=== PATIENT | male | born 1985 | race Hispanic/Latino ===

== ENCOUNTER 2021-06-12 06:38 | Inpatient (IN) | payer SELFPAY ==
[2021-06-12] VITALS (18 sets, daily range): BP systolic 140–208; BP diastolic 94–157; PULSE 80–108; RESP 15–27; TEMP 36.1–37; O2SAT 93–100; BMI 39.2
--- NOTE | ~2021-06-12 | CT_ITS ---
EXAMINATION: CT abdomen pelvis w con DATE: 06/12/2021 08:14 INDICATION: Testicular swelling for 10 days. TECHNIQUE: Computed tomography (CT) of the abdomen and pelvis was performed with 100 mL Omnipaque 350 intravenous contrast. Automated exposure control and iterative reconstruction technique were employe d. The dose-length product was 1525.79 mGy-cm. COMPARISON: None. FINDINGS: The visualized portions of the lung bases demonstrate septal thickening and [place], consistent with pulmonary edema. There are small pleural effusions. Cardiomegaly is noted. Th ere is a small pericardial effusion. The liver and spleen are normal. The gallbladder is normal in si ze. Gallbladder wall thickening is likely secondary to interstitial edema. The pancreas, adrenal glan ds, and kidneys are normal. There is old fat necrosis adjacent to the sigmoid colon. There are no dil ated loops of bowel. The appendix is normal. There are no pathologically enlarged lymph nodes. There is a small volume of ascites. There is extensive edema in the scrotum. There is subcutaneous edema in the body wall and thighs. There is mild thoracal spondylosis and moderate lumbar spondylosis. IMPRESSION: 1. Anasarca including moderate pulmonary edema, small pleural effusions, small pericardial effusion, and a small volume of ascites. 2. Cardiomegaly. Reviewed, dictated and finalized at location A.
--- NOTE | ~2021-06-12 | US_ITS ---
EXAMINATION: US biopsy renal DATE: 06/15/2021 15:31 INDICATION: Renal failure. Hematuria. TECHNIQUE: The procedure including the risks, benefits, and alternatives was discussed with the patie nt through an head buyer tobacco. Risks discussed included bleeding and infection. The patient understood th e risks and agreed to proceed. The skin overlying the left kidney was prepped and draped in usual cynthia rile fashion. Anesthetic was administered with 1% lidocaine subcutaneously. An 18 gauge core biopsy needle was then used to obtain 3 core biopsy specimens under continuous sonographic guidance. The en try site was cleaned and dressed. There were no immediate complications. FINDINGS: Ultrasound images demonstrate the needle in the kidney. IMPRESSION: 1. Ultrasound-guided random left kidney core needle biopsy. Reviewed, dictated and finalized at location A.
--- NOTE | ~2021-06-12 | US_ITS ---
EXAMINATION: US scrotum doppler DATE: 06/12/2021 07:41 INDICATION: Scrotal and penile edema. TECHNIQUE: Grayscale and Doppler ultrasound images of the testes were obtained. COMPARISON: None. FINDINGS: The right testis measures 3.9 x 2.1 x 2.7 cm. The left testis measures 3.8 x 2.6 x 2.5 cm. There is normal vascular flow to both testes. The right epididymis demonstrates a 5 mm cyst. Vascular ity is normal. The left epididymis demonstrates a 9 mm cyst. Vascularity is normal. There is no hydro brynn. There are bilateral varicoceles. There is extensive scrotal skin thickening. IMPRESSION: 1. Bilateral varicoceles. 2. Extensive scrotal skin thickening. Reviewed, dictated and finalized at location A.
--- NOTE | ~2021-06-12 | US_ITS ---
EXAMINATION: US retroperitoneal comp DATE: 06/12/2021 12:58 INDICATION: Renal failure. TECHNIQUE: Multiple ultrasound grayscale images of the kidneys were obtained. COMPARISON: CT abdomen and pelvis 06/12/2021 FINDINGS: The right kidney measures 12.4 x 4.9 x 5.0 cm. The left kidney measures 11.8 x 5.5 x 5.4 cm. The kidn eys demonstrate normal parenchymal echogenicity. There is no hydronephrosis. The bladder is normal. T here is a small volume of ascites. IMPRESSION: 1. Normal kidneys. No hydronephrosis. 2. Small volume of ascites. Reviewed, dictated and finalized at location A.
--- NOTE | ~2021-06-12 | XR_ITS ---
EXAMINATION: XR chest 1V portable DATE: 06/14/2021 07:04 INDICATION: Hypoxia. TECHNIQUE: A single frontal view of the chest was obtained. COMPARISON: CT abdomen and pelvis 06/12/2021 FINDINGS: There is mild elevation of right hemidiaphragm. The lung volumes are small. There is an int erstitial pattern in the lungs, consistent mild pulmonary edema. No visible pleural effusion. No pneu mothorax. Cardiomegaly is noted. IMPRESSION: 1. Mild pulmonary edema. 2. Cardiomegaly. Reviewed, dictated and finalized at location A.
--- NOTE | ~2021-06-12 | NM_ITS ---
EXAMINATION: NM júnior stress w perfusion DATE: 06/14/2021 11:41 INDICATION: New onset congestive heart failure. TECHNIQUE: Rest images were obtained following intravenous administration of 10.2 mCi Tc99m tetrofosm in (Myoview). The patient was infused intravenously with Lexiscan (regadenoson). Then, 31.5 mCi Tc99m tetrofosmin (Myoview) was administered intravenously, and stress images were obtained. Data was sangeetha nstructed into short axis and horizontal and vertical long axis SPECT images. Gated SPECT images were also obtained. COMPARISON: CT abdomen and pelvis 06/12/2021 FINDINGS: There is no definite reversible or fixed perfusion abnormality to suggest ischemia or infar ction. There is no segmental wall motion abnormality. Left ventricular ejection fraction measures 3 1%. IMPRESSION: 1. No definite ischemia or infarct. 2. Global hypokinesis with left ventricular ejection fraction measuring 31%. Reviewed, dictated and finalized at location A.
--- NOTE | 2021-06-12 07:22 | PC.NURSE ---
Pt to u/s via stretcher at this time.
[2021-06-12 07:26] LABS: Basophils Percent Auto 0.4 % (0.2-1.2); Eosinophils Absolute Auto 0.1 K/mm3 (0-0.3); Eosinophils Percent Auto 0.9 % (0-4.4); Hematocrit 51.7 % (42.0-52.0); Immature Granulocyte Absolute 0.03 K/mm3 (0.00-0.031); Immature Granulocyte Percent A 0.3 % (0-0.5); Lymphocytes Absolute Auto 1.28 K/mm3 (0.9-3.2); Lymphocytes Percent Auto 14.3 % (18.3-44.2); Mean Corpuscular HGB Conc 32.9 g/dl (32-36); Mean Corpuscular Hemoglobin 29.8 pg (26-34); Mean Corpuscular Volume 90.7 fl (80-100); Mean Platelet Volume 11.2 fl (7.4-10.4); Monocytes Absolute Auto 0.5 K/mm3 (0.1-0.6); Neutrophils Percent Auto 78.1 % (45.5-73.1); Platelet Count Result 218 k/mm3 (150-375); Red Cell Distribution Width 13.8 % (11.5-14.5)
--- NOTE | 2021-06-12 07:34 | ED.GENADULT ---
HPI - General Adult General Chief complaint: Urogenital-Male Stated complaint: both testicle swelling Time Seen by Provider: 06/12/21 07:04 Source: patient and family Mode of arrival: ambulatory Limitations: language barrier History of Present Illness HPI narrative: 36-year-old male presents emergency room secondary to some swelling to his scrotum has been going on for approximately a week. He is here with his cousin who is functioning as a cardiac catheterization technician. Began having swelling to his scrotum approximately 1 week ago skin progressively worse. He denies urethral discharge. Denies any chills or fevers. He is sexually active last time as sexual intercourse was about 1/2 to 2 weeks ago. Is never had anything like this before is also noted to get some swelling to his legs as well as some to his abdomen. Denies any chills or fevers. No cough or congestion. No nausea vomiting diarrhea constipation. He does not elicit any chronic medical issues. Related Data Home Medications Medication Instructions Recorded Confirmed No Home Medications 06/12/21 06/12/21 Allergies Allergy/AdvReac Type Severity Reaction Status Date / Time No Known Allergies Allergy Verified 06/12/21 07:01 Review of Systems Review of Systems: CONSTITUTIONAL: Denies fever, chills, or sweats. EYES: Denies visual changes, redness, or discharge. ENT: Denies rhinorrhea, congestion, sore throat, or otalgia. CARDIOVASCULAR: Denies chest pain, palpitations, or edema. RESPIRATORY: Denies cough or dyspnea. GASTROINTESTINAL: Denies abdominal pain, nausea, vomiting, or diarrhea. GENITOURINARY: Denies dysuria or hematuria. Swelling to the scrotum and penis SKIN: Denies rash or itching. MUSCULOSKELETAL: Denies back pain, joint pain, or myalgia. NEUROLOGIC: Denies headache, numbness, or weakness. PSYCHIATRIC: Denies anxiety or depression. Exam Narrative: APPEARANCE: Well appearing, no pain or distress, well-nourished. Head normocephalic and atraumatic. EYES: PERRLA/EOMI, conjunctivae very clear. NOSE: Normal with no drainage EARS:TMS clear Deven Holloway, with good light reflex. THROAT: Pharynx clear, no exudate. NECK: Supple. No adenopathy, no masses. RESPIRATORY: Airway patent, respirations nonlabored. Clear to auscultation bilaterally, no rales, rhonchi, wheezing. CARDIOVASCULAR: Regular rate and rhythm without murmurs, rubs, or gallops. ABDOMINAL: Soft, nontender, nondistended, no hepatosplenomegaly. Edema noted to the abdominal wall Musculoskeletal: Moves all extremities. Strength/ROM intact, No calf tenderness. 2+ edema to both lower extremities NEURO: Alert. Cranial nerves II through XII intact. Normal gait. Good coordination. Nonfocal examination. SKIN:: Warm, dry. Normal Color PSYCHIATRIC: Normal affect/mood, normal interaction Genital: Marked edema noted to the entire scrotum with no tenderness. Also has edema all the way to the penis. No discharge noted. It is not exquisitely tender. Course Consultations Consultation #1: Discussed with Dr. García Samson the sales counselor made him aware of the consultation and he will be seeing the patient. Date: 06/12/21 Time: 09:45 Consultation #2: The cyber security analyst Dr. Mendoza and he is aware of the patient's presentation will be seeing the patient on presentation to intensive care unit. Date: 06/12/21 Time: 10:02 Vital Signs Vital signs: Vital Signs Temperature 98.6 F 06/12/21 06:41 Pulse Rate 108 H 06/12/21 06:41 Respiratory Rate 18 06/12/21 06:41 Blood Pressure 208/152 H 06/12/21 06:41 Pulse Oximetry 100 06/12/21 06:41 Temperature 98.6 F 06/12/21 06:41 Pulse Rate 88 06/12/21 09:54 Respiratory Rate 21 H 06/12/21 09:54 Blood Pressure 172/146 H 06/12/21 09:54 Pulse Oximetry 97 06/12/21 09:54 Medical Decision Making MDM Narrative Medical decision making narrative: On presentation the patient is noted to have diffuse edema consistent with anasarca. Also his blood pressure is markedly elevated w
[2021-06-12 07:43] LABS: Alanine Aminotransferase 59 U/L (4-50); Albumin Level 3.1 g/dL (3.5-5.1); Alkaline Phosphatase 89 U/L (38-126); Anion Gap 1 mmol/L (8-16); Aspartate Amino Transferase 51 U/L (17-59); Blood Urea Nitrogen 33 mg/dL (9-20); Calcium 7.9 mg/dL (8.4-10.2); Carbon Dioxide 31 mmol/L (22-30); Chloride 104 mmol/L (98-107); Estimated CRCL calculation 50 ml/min; Estimated Glomerular Filt Rate 38; Glucose 116 mg/dL (65-110); Potassium 4.4 mmol/L (3.4-5.0); Sodium 136 mmol/L (137-145)
[2021-06-12 08:11] LABS: Add Urine Microscopic? YES; Appearance Urine Cloudy (Clear); Bacteria Urine Trace /hpf; Bilirubin Urine Negative (Negative); Blood Urine 2+ (Negative); Color Urine Yellow (Yellow); Glucose Urine UA 1+ mg/dL (Negative); Ketones Urine Trace mg/dL (Negative); Leukocyte Esterase Ur Negative LEU/UL (Negative); Mucus Urine Rare /lpf; Nitrate Urine Negative (Negative); Protein Urine 3+ mg/dL (Negative); Specific Grav Ur 1.022 (1.001-1.035); Urobilinogen Urine Negative mg/dL (<2.0)
[2021-06-12] MEDS: LABETALOL HCL INJ 100 MG/20 ML VIAL 10 MG IV PUSH (09:18)
[2021-06-12] MEDS: niCARdipine 20 MG/200 ML 20 MG/200 ML BAG 50 MG IV CONT (09:53)
--- NOTE | 2021-06-12 10:06 | ECG_ITS ---
Measurements Intervals [place] Rate: 87 P: 30 WV: 167 QRS: 62 QRSD: 94 T: 19 QT: 382 QTc: 461 Interpretive Statements SINUS RHYTHM NONSPECIFIC T-WAVE ABNORMALITY Electronically Signed On 06-12-2021 11:42:20 CDT by Jorge La M.D.
--- NOTE | 2021-06-12 10:20 | WPDCNINT ---
Assessment and Plan Assessment and plan (1) Hypertensive emergency: Code(s): I16.1 - Hypertensive emergency Status: Acute Assessment and Plan: Patient presented with elevated blood pressure was started on nicardipine drip I will start him on p.o. metoprolol, IV Lasix and IV p.r.n. labetalol and hydralazine medication Wean off nicardipine infusion Will try to keep systolic between 150-160 for next 24 hours Echo is ordered EKG reviewed Patient is asymptomatic at this time (2) Anasarca: Code(s): R60.1 - Generalized edema Status: Acute Assessment and Plan: Patient may have nephrotic disease. Nephrology has seen the patient and workup has been ordered including 24 hour protein Check renal ultrasound Also look for other causes check echocardiogram, TSH Start Lasix once urine samples were collected for volume overload (3) Acute kidney injury: Code(s): N17.9 - Acute kidney failure, unspecified Status: Acute Assessment and Plan: See above Additional Plan DVT prophylaxis -Lovenox subQ Nutrition -renal diet Code Status -patient requests to be full code and request that his cousin moy to be his POA. He is unmarried and his parents are in [place]. Has a sibling in [place] but he does not want him to be notified or involved in his care Intellectual Property Legal Assistant Consult Note Consult date: 06/12/21 HPI: Danny Garcia is a 36 year old male with no significant past medical history presented with swelling of his scrotum from last 2 days. Patient states that swelling started 1-2 weeks but was not seen until last 2 days when it had gotten worse. Hence he presented to ED. he also states that his swelling in the legs also started couple weeks and has been getting worse but was not the main reason for him to come to the hospital. He denies any other symptoms He denies any chest pain shortness of breath abdominal pain nausea vomiting diarrhea. No hematemesis hemoptysis hematuria or blood in his stool. He has not noticed any change in the amount of urine he produces. He denies any difficulty with urination.. He states he wakes up only once at night to pee. No nocturia, polyuria frequency, dysuria or foul-smelling urine. He denies taking any upuh-[id number]-[id number] nonsteroidal drugs for pain. Denies any headache, blurry vision weakness of varices in any particular extremity. He denies any shortness of breath. All other systems were reviewed and were negative He denies any past medical history, past surgical history or family history. He denies smoking alcohol use or any other drug use. 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 He has see if 2 doses of vaccine against COVID-19 Review of Systems Review of Systems: All systems reviewed & are unremarkable except as noted in HPI and below (HPI) [facility] Social History Social History Smoking status: Never smoker Alcohol intake: former Substance use type: does not use Spiritual care concerns: No Meds Home Medications and Allergies Home Medications Medication Instructions Recorded Confirmed Type No Home Medications 06/12/21 06/12/21 History Allergies Allergy/AdvReac Type Severity Reaction Status Date / Time No Known Allergies Allergy Verified 06/12/21 11:58 Vital Signs Vital Signs - 24 hr 06/12/21 06:41 06/12/21 09:09 06/12/21 09:53 Temperature 37.0 C Pulse Rate 108 H 101 H 86 Respiratory Rate 18 18 Blood Pressure 208/152 H 198/157 H 167/139 H Pulse Oximetry 100 99 06/12/21 09:54 Temperature Pulse Rate 88 Respiratory Rate 21 H Blood Pressure 172/146 H Pulse Oximetry 97 Exam Narrative: General: Pt is alert awake and in NAD Lungs/Chest: Trachea central Clear BS B/L, bibasilar crackles present Cardiac: RRR. Normal S1 S2. No murmurs Circulation: Pedal pulses are intact and symmetrical. Abdomen: Normal bowel sounds.. Soft. NT. ND. Ext
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
--- NOTE | 2021-06-12 10:41 | ECHO_ITS ---
Patient Info Name: Danny Garcia Age: 36 years : 1985 Gender: Male Ht: 65 in Wt: 209 lbs BSA: 2.12 m2 HR: 88 bpm BP: 140 / 123 mmHg Heart Rhythm: Sinus Rhythm Technical Quality: Fair Exam Date: 06/12/2021 11:51 AM Exam Location: [facility] Patient Status: Inpatient Admit Date: 06/12/2021 Staff Ordering Physician: García Samson MD Acetaldehyde Converter Operator: Nova Kline RDCS Attending Provider: Laz Horan M.A., MD Referring Physician: Chapin SUTTON; Exam Type: CA echo doppler color flow Study Info Indications - Anasarca and pulmonaey edema and effusion Complete two-dimensional, color flow and Doppler transthoracic echocardiogram is performed. Summary 1. Complete two-dimensional, color flow and Doppler transthoracic echocardiogram is performed. 2. Moderate left ventricular enlargement. Mild eccentric left ventricular hypertrophy. Severe global left ventricular dysfunction, EF 30-35%. Grade 2 diastolic dysfunction. 3. Global longitudinal strain was severely diminished at -10%. There was apical sparing, which can be seen with cardiac amyloidosis. 4. Right ventricular size is normal but systolic function is reduced. 5. Left atrial chamber dimension is mildly enlarged. 6. Right atrial chamber dimension is mildly enlarged. 7. There is mild to moderate tricuspid valve regurgitation. 8. Moderate pulmonary hypertension, estimated pulmonary arterial systolic pressure is 55 mmHg. 9. Dilated inferior vena cava. 10. Normal sinus rhythm. Left Ventricle Left ventricular chamber dimension is moderately enlarged. Left ventricular systolic function is severely reduced, estimated at 30-35%. There is mildly increased left ventricular wall thickness. Left ventricular septal wall motion is normal. The left ventricular diastolic function is grade II diastolic dysfunction. Global longitudinal strain is severely elevated at -10 %. Right Ventricle Right ventricular chamber dimension is normal. Right ventricular size is normal but systolic function is reduced. Linear artifact in right ventricle suggestive of catheter(s), pacemaker lead(s), or ICD lead(s). Left Atria Left atrial chamber dimension is mildly enlarged. Right Atria Right atrial chamber dimension is mildly enlarged. Aortic Valve The aortic valve is trileaflet. There is no aortic valve sclerosis. There is no aortic valve stenosis. There is no aortic valve regurgitation. Pulmonic Valve The pulmonic valve is normal. There is no pulmonic valve stenosis. There is trace pulmonic regurgitation. Mitral Valve The mitral valve has normal leaflets. There is no mitral valve stenosis. There is trace mitral valve regurgitation. Tricuspid Valve The tricuspid valve leaflets are normal. There is no significant tricuspid valve stenosis. There is mild to moderate tricuspid valve regurgitation. Moderate pulmonary hypertension, estimated pulmonary arterial systolic pressure is 55 mmHg. Pericardium/Pleural The pericardium appears normal. There is trivial pericardial effusion. Inferior Vena Cava Dilated inferior vena cava. Aorta The aortic root size at the sinus of Valsalva is normal. The prox ascending aorta size is normal. Left Ventricular Outflow Tract Name Value Normal LVOT 2D ---
--- NOTE | 2021-06-12 10:58 | ADMGEN ---
This patient, Danny Garcia, was admitted to Intensive Care Unit-6. Patient/family oriented to hospital policies and general routines including ID bracelet, bed and alarms, visiting hours, pain management, procedures, bathroom and other care routines, personal items, smoking policy, room service/diet, and visiting hours. Information on how to activate the Rapid Response Team has been discussed. Patient/Family are encouraged to report perceived risks to care and to ask questions if they do not understand what they are told or what they should do.
[2021-06-12 11:43] LABS: Creatinine Urine 141.4 mg/dL
[2021-06-12 11:48] LABS: Sodium Urine Random 51 meq/L
[2021-06-12 11:51] LABS: Creatine Kinase 597 U/L (55-170)
[2021-06-12 11:59] LABS: Total Protein Urine Random > 600 mg/dL
[2021-06-12 12:04] LABS: Parathyroid Intact 216.4 pg/mL (7.5-53.5)
[2021-06-12 12:10] LABS: Complement C3 136 mg/dL (88-165)
[2021-06-12 12:20] LABS: Erythrocyte Sedimentation Rate 8 mm/hr (0-20)
[2021-06-12 12:33] LABS: Hemoglobin A1C 5.5 % (<5.7)
[2021-06-12 12:40] LABS: NT Pro B Type Natriuretic Pept 9410 pg/mL (5-100)
[2021-06-12 12:54] LABS: Hepatitis B Surface Antigen Negative (Negative)
[2021-06-12] MEDS: FUROSEMIDE INJ 100 MG/10 ML VIAL 80 MG IV PUSH ×2 (13:00→20:10)
[2021-06-12] MEDS: METOPROLOL TARTRATE 25 MG TABLET PO ×2 (13:00→20:10)
[2021-06-12] MEDS: ENOXAPARIN 40 MG/0.4 ML SYRINGE SUB-Q (13:00)
[2021-06-12 13:12] LABS: Hepatitis B Surface Anti Res Negative; Hepatitis C Virus Antibody Negative (Negative)
--- NOTE | 2021-06-12 14:30 | PM.IMHP ---
H&P: HPI History of Present Illness Date/Time: 06/12/21 14:30 Chief Complaint: 36 year old male with past medical history of obesity patient start having scrotal swelling started 2 weeks ago worsening gradually no aggravating or relieving factor associated with lower extremity edema worsening gradually patient also complained of shortness of breath worsening with activity denies chest pain fever or chills at the ER patient was found to have hypertensive urgency diastolic blood pressure was in 150s also acute renal failure generalized anasarca admitted to the hospital for further evaluation and treatment Patient was started on nicardipine drip IV Lasix nephrology critical care was consulted Review of Systems Review of Systems: All systems reviewed & are unremarkable except as noted in HPI and below PMFSH Social History Social History Smoking status: Never smoker Alcohol intake: former Substance use type: does not use Spiritual care concerns: No Meds Home Medications and Allergies Home Medications Medication Instructions Recorded Confirmed Type No Home Medications 06/12/21 06/12/21 History Allergies Allergy/AdvReac Type Severity Reaction Status Date / Time No Known Allergies Allergy Verified 06/12/21 11:58 Vital Signs Vital Signs - 24 hr 06/12/21 06:41 06/12/21 09:09 06/12/21 09:53 Temperature 98.6 F Pulse Rate 108 H 101 H 86 Respiratory Rate 18 18 Blood Pressure 208/152 H 198/157 H 167/139 H Pulse Oximetry 100 99 06/12/21 09:54 06/12/21 10:20 06/12/21 10:45 Temperature Pulse Rate 88 88 91 Respiratory Rate 21 H 16 15 Blood Pressure 172/146 H 140/123 H 146/123 H Pulse Oximetry 97 96 99 06/12/21 12:00 06/12/21 12:58 06/12/21 13:00 Temperature Pulse Rate 88 89 Respiratory Rate 27 H Blood Pressure 159/107 H 148/94 H Pulse Oximetry 93 06/12/21 14:00 06/12/21 14:29 Temperature Pulse Rate 80 Respiratory Rate 26 H Blood Pressure 154/119 H 164/111 H Pulse Oximetry 95 Exam Const: General: in distress HENMT: Mouth: Yes moist mucous membranes Eyes: Sclera: sclerae normal Neck: Neck: supple Resp: Auscultation: rales and diminished lung sounds Cardio: Rate: regular rate Rhythm: regular rhythm GI: Inspection: distended GI Palp: Yes Soft to palpation Skin: General skin exam: normal color and erythema Neuro: Speech: normal speech Motor exam (neuro): 5/5 motor strength present throughout and Normal motor muscle tone present throughout Extrem: General: normal to inspection Psych: Mental Status: mental status grossly normal H&P: Results Labs Labs: Short CBC 06/12/21 Range/Units 07:18 WBC 9.0 (4.5-10.0) K/mm3 Hgb 17.0 (14.0-18.0) g/dL Hct 51.7 (42.0-52.0) % Plt Count 218 (150-375) k/mm3 BMP 06/12/21 07:18 Sodium 136 L Potassium 4.4 Chloride 104 Carbon Dioxide 31 H BUN 33 H Creatinine 2.00 H Glucose 116 H Calcium 7.9 L Cardiac Enzymes 06/12/21 Range/Units 11:35 Total Creatine Kinase 597 H (55-170) U/L Liver Function 06/12/21 Range/Units 07:18 Total Bilirubin 1.0 (0.2-1.3) mg/dL AST 51 (17-59) U/L ALT 59 H (4-50) U/L Alkaline Phosphatase 89 (38-126) U/L Albumin 3.1 L (3.5-5.1) g/dL Urine 06/12/21 Range/Units 07:42 Urine Color Yellow (Yellow) Urine Appearance Cloudy H (Clear) Urine pH 6.0 (5.0-9.0) Ur Specific [place] 1.022 (1.001-1.035) Urine Protein 3+ H (Negative) mg/dL Urine Glucose (UA) 1+ H (Negative) mg/dL Assessment and Plan Assessment and plan (1) Hypertensive emergency: Code(s): I16.1 - Hypertensive emergency Status: Acute Assessment and Plan: Nicardipine drip Admit to ICU Monitor vital sign Pending echo Pending renal ultrasound (2) Acute kidney injury: Code(s): N17.9 - Acute kidney failure, unspecified Status
[2021-06-12] MEDS: LABETALOL HCL INJ 100 MG/20 ML VIAL 20 MG IV PUSH (15:38)
[2021-06-12] MEDS: hydrALAZINE HCL 25 MG TABLET PO ×2 (18:10→20:10)
[2021-06-12 18:34] LABS: Anion Gap 2 mmol/L (8-16); Blood Urea Nitrogen 29 mg/dL (9-20); Calcium 8.3 mg/dL (8.4-10.2); Carbon Dioxide 31 mmol/L (22-30); Chloride 104 mmol/L (98-107); Estimated CRCL calculation 53 ml/min; Estimated Glomerular Filt Rate 38; Glucose 102 mg/dL (65-110); Potassium 3.5 mmol/L (3.4-5.0); Sodium 137 mmol/L (137-145)
[2021-06-13] VITALS (13 sets, daily range): BP systolic 131–188; BP diastolic 104–141; PULSE 72–93; RESP 20–29; TEMP 35.9–36.7; O2SAT 91–100
[2021-06-13 04:25] LABS: Basophils Absolute Auto 0.1 K/mm3 (0.0-0.1); Basophils Percent Auto 0.6 % (0.2-1.2); Eosinophils Absolute Auto 0.2 K/mm3 (0-0.3); Eosinophils Percent Auto 1.6 % (0-4.4); Hematocrit 51.6 % (42.0-52.0); Immature Granulocyte Absolute 0.03 K/mm3 (0.00-0.031); Immature Granulocyte Percent A 0.3 % (0-0.5); Lymphocytes Absolute Auto 1.92 K/mm3 (0.9-3.2); Lymphocytes Percent Auto 20.5 % (18.3-44.2); Mean Corpuscular HGB Conc 32.9 g/dl (32-36); Mean Corpuscular Hemoglobin 30.1 pg (26-34); Mean Corpuscular Volume 91.5 fl (80-100); Mean Platelet Volume 11.1 fl (7.4-10.4); Monocytes Absolute Auto 0.7 K/mm3 (0.1-0.6); Monocytes Percent Auto 7.7 % (2.6-8.5); Neutrophils Absolute Auto 6.5 K/mm3 (1.3-6.7); Neutrophils Percent Auto 69.3 % (45.5-73.1); Platelet Count Result 213 k/mm3 (150-375); Red Blood Count 5.64 M/mm3 (4.6-6.20); White Blood Count 9.4 K/mm3 (4.5-10.0)
[2021-06-13 04:37] LABS: Alanine Aminotransferase 50 U/L (4-50); Albumin Level 2.9 g/dL (3.5-5.1); Alkaline Phosphatase 87 U/L (38-126); Anion Gap 1 mmol/L (8-16); Aspartate Amino Transferase 40 U/L (17-59); Bilirubin,Total 0.9 mg/dL (0.2-1.3); Blood Urea Nitrogen 26 mg/dL (9-20); Carbon Dioxide 35 mmol/L (22-30); Chloride 101 mmol/L (98-107); Estimated CRCL calculation 53 ml/min; Estimated Glomerular Filt Rate 38; Glucose 98 mg/dL (65-110); Phosphorus 5.6 mg/dL (2.5-4.5); Potassium 3.1 mmol/L (3.4-5.0); Sodium 137 mmol/L (137-145)
[2021-06-13] MEDS: POTASSIUM CHLORIDE 20 MEQ TABLET 80 MEQ PO (07:58)
[2021-06-13] MEDS: METOPROLOL TARTRATE 25 MG TABLET PO ×2 (07:59→20:50)
[2021-06-13] MEDS: FUROSEMIDE INJ 40 MG/4 ML VIAL IV PUSH ×2 (07:59→16:36)
[2021-06-13] MEDS: ENOXAPARIN 40 MG/0.4 ML SYRINGE SUB-Q (07:59)
[2021-06-13] MEDS: hydrALAZINE HCL 25 MG TABLET PO ×4 (08:00→20:51)
[2021-06-13] MEDS: LABETALOL HCL INJ 100 MG/20 ML VIAL 20 MG IV PUSH (08:10)
--- NOTE | 2021-06-13 08:33 | WPDINTPN ---
Progress Note: A&P Assessment and Plan (1) Hypertensive emergency: Code(s): I16.1 - Hypertensive emergency Status: Acute Assessment and Plan: Patient presented with elevated blood pressure was started on nicardipine drip -patient was off nicardipine upon arrival to the ICU - Continue p.o. metoprolol, IV Lasix and IV p.r.n. labetalol and hydralazine medication -maintain SBP between 140-160 mmHg EKG reviewed Patient is asymptomatic at this time 06/12/2021: Echocardiogram -mild eccentric LVH, severe global LV dysfunction, EF 30-35%, grade 2 diastolic dysfunction - RV size is normal but systolic function is reduced -moderate pulmonary hypertension with RVSP of 55 mmHg, dilated inferior vena cava (2) Anasarca: Code(s): R60.1 - Generalized edema Status: Acute Assessment and Plan: Patient may have nephrotic disease. Nephrology has seen the patient and workup has been ordered including 24 hour protein -renal ultrasound 06/12: Normal kidneys, no hydronephrosis, small volume of ascites -echocardiogram as above -TSH within normal limits -continue Lasix, good response to diuretics, negative 6.5 L in fluid balance 24 hours -discussed with Nephrology, will continue diuresis (3) Acute kidney injury: Code(s): N17.9 - Acute kidney failure, unspecified Status: Acute Assessment and Plan: Could be related to chronic hypertension, nephrotic disease, glomerular nephritis, could be related to heart failure -renal ultrasound showed normal kidneys with no hydronephrosis -serologies and immunofixation tests 7 been ordered and pending -appreciate nephrology following the patient (4) Pulmonary hypertension: Code(s): I27.20 - Pulmonary hypertension, unspecified Status: Acute Assessment and Plan: Moderate pulmonary hypertension -patient also possibly has sleep apnea -will consult pulmonology (5) Cardiomyopathy: Code(s): I42.9 - Cardiomyopathy, unspecified Status: Acute Assessment and Plan: Echocardiogram as above, EF of 30-35%, grade 2 diastolic dysfunction -currently on diuretics, metoprolol, will require TAWNYA-inhibitor/ARB -will have Cardiology evaluate the patient (6) Scrotal swelling: Code(s): N50.89 - Other specified disorders of the male genital organs Status: Acute Assessment and Plan: Scrotal swelling related to anasarca secondary to renal disease, congestive heart failure -scrotal ultrasound on 06/12/2021: Bilateral varicoceles, extensive scrotal skin thickening (7) Electrolyte abnormality: Code(s): E87.8 - Other disorders of electrolyte and fluid balance, not elsewhere classified Status: Acute Assessment and Plan: Hypokalemia: Will replace potassium (8) DVT prophylaxis: Code(s): Z29.9 - Encounter for prophylactic measures, unspecified Status: Acute Assessment and Plan: Lovenox Additional Plan Nutrition -renal diet Code status: Patient requests to be full code and request that his cousin moy to be his POA. He is unmarried and his parents are in [place]. Has a sibling in [place] but he does not want him to be notified or involved in his care Critical care time spent: 34 minutes Due to a high probability of clinically significant, life threatening deterioration, the patient required my highest level of preparedness to intervene emergently and I personally spent this critical care time directly and personally managing the patient. This critical care time included obtaining a history; examining the patient; pulse oximetry; ordering and review of studies; arranging urgent treatment with development of a management plan; evaluation of patient's response to treatment; frequent reassessment; and discussions with other providers. It was exclusive of separately billable procedures and treating other patients and teaching time. Please see Assessment and Plan section and the rest of the note for asael
[2021-06-13 09:49] LABS: Alveolar/Arterial O2 Gradient 45.2 mmHg; Base Excess ABG 5.3 mEq/l (+/-2.0); Fractional Inspired Oxygen 28 %; HCO3 ABG 30.6 mEq/l (22.0-26.0); Oxygen Content ABG 23.3 %vol (16.0-22.0); Oxygen Saturation ABG 97.6 % (95.0-100.0); Oxyhemoglobin 96.7 % THb (90.0-100.0); PCO2 ABG 46.9 mmHg (35.0-45.0); PO2 ABG 99.1 mmHg (80.0-100.0); PO2 FiO2 Ratio Arterial Blood 3.54 %; Total Hemoglobin 17.1 g/dL (12.0-18.0); pH ABG 7.433 (7.350-7.450)
[2021-06-13 09:50] LABS: Device NASAL CANNULA; Modified Allen's Test Pass; Site Drawn RIGHT RADIAL
--- NOTE | 2021-06-13 10:13 | PM.CNPUL ---
Assessment and Plan Assessment and plan (1) Hypoxia: Code(s): R09.02 - Hypoxemia Status: Acute Assessment and Plan: 06/13 Patient with obesity, overnight oximetry requiring 2 L nasal cannula with intermittent sharp desats consistent with obstructive or apneic episodes, right and left heart failure with pulmonary arterial systolic pressure of 55. ABG on 2 L during the day shows a pH of 7.43/47/99 so there is no evidence of chronic hypercarbic respiratory failure that would qualify him for empiric PAP therapy. I suspect the patient has obstructive sleep apnea and he will need an outpatient sleep study to confirm this. In the meantime I agree with 2 L nasal cannula at night to avoid nocturnal hypoxemia. Patient does have an elevated PASP at 55 in the etiologies of this include left sided heart failure and untreated obstructive sleep apnea. I do not recommend empiric treatment with CPAP or BiPAP given that this may elicit treatment emergent central apneas. TSH is normal at 3.28 on 06/12/2021 Cardiology has been consulted regarding the workup is heart failure. Agree with Lasix as tolerated by his cardiac and renal systems and this may be challenging given his creatinine of 2.0. Nephrology has been consulted. He has no history of asthma and is a never smoker and there is no need for any bronchodilators or antibiotics from my perspective. wean oxygen during the day as tolerated to maintain saturations 90-94%. Discussed with Dr. Tran History of Present Illness History of Present Illness Consult date: 06/13/21 Requesting physician: Kiah Tran MD Reason for consult: hypoxemia Chief complaint: Hypertensive Urgency, Nephrotic Syndrome Narrative: 06/13/2021: This is a new pulmonary consult for nocturnal hypoxemia 36-year-old Swiss-speaking man with obesity presented to the hospital with hypertensive emergency, acute kidney injury, generalized swelling. patient was found to have Generalized edema, elevated BNP, CT of the abdomen that showed anasarca with pulmonary edema and small bilateral pleural effusions and a small amount of ascites. Patient had cardiomegaly as well. Patient was treated IV Lasix. Patient had an echocardiogram demonstrated left ventricular dysfunction with an EF of 30-35%, grade 2 diastolic dysfunction, normal right ventricular size but reduced systolic function, mildly enlarged left atrium mildly enlarged rate 18 room mild to moderate tricuspid regurgitation with a PA SP of 55. [place] had an overnight oximetry last night on room air but had desaturations to 70%. He was then placed on 2 L and his saturations remained 97-98% with 3 sharp desaturations less than 88%. I obtained the history through a concrete rod buster. The patient denies any prior respiratory illnesses such as asthma or COPD. He has never been on respiratory medicines are oxygen in the past. He has no respiratory limitations in his activities of daily living. The patient is a never smoker. 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 Patient works in the [employer] at the [employer]. He has no family history of respiratory disease. Patient lives alone and does not know if he snores. He wakes up and feels refreshed. He has no daytime hypersomnia and occasionally will take a nap for 10 minutes. Patient has experienced no recent weight gain. Since admitted to the hospital he has been treated with Lasix and diuresed a total of 6.5 L. He says that he is now feeling normal and that the swelling is decreasing. Patient is currently on 2 L nasal cannula saturations 98%. DATA: 06/12/21 Summary 1. Complete two-dimensional, color flow and Doppler transthoracic echocardiogram is performed. 2. Moderate left ventricular enlargement. Mild eccentric left ventricular hypertrophy. Severe global left ventri
--- NOTE | 2021-06-13 10:51 | PM.IMPN ---
Progress Note: A&P Assessment and Plan (1) Hypertensive emergency: Code(s): I16.1 - Hypertensive emergency Status: Acute Assessment and Plan: Nicardipine drip Admit to ICU Monitor vital sign Cardiology consult (2) Acute kidney injury: Code(s): N17.9 - Acute kidney failure, unspecified Status: Acute Assessment and Plan: Probable related to hypertensive urgency and CHF exacerbation Concern for glomerular nephritis concern for nephrotic syndrome autoimmune workup pending Nephrology consult IV Lasix Renal ultrasound (3) Anasarca: Code(s): R60.1 - Generalized edema Status: Acute Assessment and Plan: Reviewed CT scan shows anasarca pulmonary edema pleural effusion multifactorial most likely related to hypertensive urgency and acute renal failure cannot rule out nephrotic syndrome Continue IV diuresis Echo shows ejection fraction 35% (4) Hypoxia: Code(s): R09.02 - Hypoxemia Status: Acute Assessment and Plan: Multifactorial secondary to pulmonary edema and obstructive sleep apnea pulmonology consulted sleep study as outpatient continue IV diuresis (5) Cardiomyopathy: Code(s): I42.9 - Cardiomyopathy, unspecified Status: Acute Assessment and Plan: Acute systolic CHF exacerbation cardiology consult may need ischemia workup continue IV diuresis Subjective Date/time seen: 06/13/21 10:51 Interval history: 36 years old male Georgian speaker certified lactation counselor service was used during being counter presented to the hospital with scrotal swelling lower extremity edema shortness of breath was found to have anasarca associated with elevated creatinine systolic heart failure ejection fraction 30-35 per hypertensive urgency hypoxia admitted to the ICU started on nicardipine drip Hypertension still uncontrolled still have swelling of lower extremity and scrotal area Patient denies fever headache chest pain I am seeing the patient for shortness of breath Exam Narrative: Alert Chest decreased air entry bilateral bilateral basal crackles Abdomen nontender nondistended CVS S1 + S2 Significant Lower extremity edema Significant scrotal edema Objective Data Vital Signs Vital Signs: Vital Signs - 24 hr 06/12/21 12:00 06/12/21 12:58 06/12/21 13:00 Temperature Pulse Rate 88 89 Respiratory Rate 27 H Blood Pressure 159/107 H 148/94 H Pulse Oximetry 93 06/12/21 14:00 06/12/21 14:29 06/12/21 15:38 Temperature Pulse Rate 80 85 Respiratory Rate 26 H Blood Pressure 154/119 H 164/111 H Pulse Oximetry 95 06/12/21 16:00 06/12/21 18:00 06/12/21 20:00 Temperature 98.6 F 97 F L Pulse Rate 80 89 82 Respiratory Rate 27 H 20 27 H Blood Pressure 159/107 H 154/105 H 159/107 H Pulse Oximetry 96 94 93 06/12/21 20:10 06/12/21 22:00 06/12/21 22:35 Temperature Pulse Rate 84 92 Respiratory Rate 16 Blood Pressure 163/121 H Pulse Oximetry 99 96 06/13/21 00:00 06/13/21 00:25 06/13/21 02:00 Temperature 97.6 F Pulse Rate 77 75 Respiratory Rate 23 H 25 H Blood Pressure 167/108 H 145/113 H Pulse Oximetry 99 91 97 06/13/21 04:00 06/13/21 06:00 06/13/21 08:00 Temperature 96.7 F L 97.8 F Pulse Rate 77 78 89 Respiratory Rate 21 H 20 22 H Blood Pressure 151/118 H 162/127 H 188/141 H Pulse Oximetry 100 100 98 06/13/21 10:00 Temperature Pulse Rate 75 Respiratory Rate Blood Pressure Pulse Oximetry Intake/Output Intake/Output: Intake & Output 06/10/21 06/11/21 06/12/21 06/13/21 23:59 23:59 23:59 23:59 Intake Total 1360 740 Output Total 5710 0690 Balance -4460 -2778 Meds/Results Medications: Active Medications Generic Name Dose Route Start Last Admin Trade Name Freq PRN Reason Stop Dose Admin Enoxaparin Sodium 40 mg 06/12/21 12:25 06/13/21 07:59 Enoxaparin 40 Mg/0.4 Ml Syringe SUB-Q 40 mg DAILY MISTY Administration Furosemide 40 mg 06/13/21 09:00 06/13/21 07:59
--- NOTE | 2021-06-13 15:15 | PM.CNCAR ---
Assessment and Plan Assessment and plan (1) Acute combined systolic and diastolic congestive heart failure: Code(s): I50.41 - Acute combined systolic (congestive) and diastolic (congestive) heart failure Status: Acute Assessment and Plan: Patient presents with acute systolic and diastolic heart failure, new onset with an ejection fraction of 30-35%. Likely hypertensive, although surprisingly his EKG does not show LVH. He did have LVH and LV enlargement on his echo. Coronary disease seems unlikely, but will check a Lexiscan this week. Myocarditis seems unlikely. Nothing to suggest valvular heart disease or congenital heart disease. Improving with IV diuretics and blood pressure control Agree with hydralazine and metoprolol; will titrate metoprolol as an outpatient. Add nitrates to the hydralazine At spironolactone, follow the potassium level Will hold off on Entresto or losartan, and Farxiga, for the moment, due to his kidney disease. (2) Hypertensive cardiomyopathy: Code(s): I11.9 - Hypertensive heart disease without heart failure; I43 - Cardiomyopathy in diseases classified elsewhere Status: Acute Assessment and Plan: Severely elevated blood pressure on admission of uncertain duration. The left ventricular enlargement and LVH seen on echo suggested this is a longstanding problem. Improving Okay to transfer to a telemetry bed Odd that he would have such severe hypertension with apparently no family history of hypertension. Will check for a cause with metanephrines and renin/aldosterone. (3) Hypertensive emergency: Code(s): I16.1 - Hypertensive emergency Status: Acute Assessment and Plan: Treated severe hypertension emergently withnicardipine and ICU evaluation. Improved. (4) Acute kidney injury: Code(s): N17.9 - Acute kidney failure, unspecified Status: Acute Assessment and Plan: Creatinine has remained stable with impressive diuresis. Dr. Samson following History of Present Illness History of Present Illness Consult date/time: 06/13/21 15:15 Requesting physician: Kiah Tran MD Consult reason: congestive heart failure Reason For Visit: Hypertensive Urgency, Nephrotic Syndrome Narrative: Mr. Danny Garcia is a 36-year-old Tamazight-speaking male whom we were asked to see at the request of Dr. Tran for our advice and opinion regarding his CHF and new cardiomyopathy. The patient presented to the emergency room with complaints of scrotal edema and total body edema, and a blood pressure of 208/152 mmHg. He was admitted to the ICU for management of his CHF and hypertensive emergency and anasarca. He initially was treated with a nicardipine drip, and is now taking metoprolol, hydralazine, and IV furosemide. Echocardiogram showed EF of 30-35%, mild LVH, moderate LV enlargement. He is also being seen by Dr. Samson for his proteinuria and creatinine of 2.0. He is being seen by Dr. Benitez for his moderate pulmonary hypertension. The patient only noted mild dyspnea a day or 2 prior to admission. He has never known he had high blood pressure. No chest pain. Apparently no family history of heart disease or hypertension. No drug use. The patient does not speak Wallisian and my consultation was done with the assistance of a video brick yard hand. The patient's cousin also arrived toward the end of our time together. Review of Systems Constitutional: Constitutional: Reports fatigue Eyes: Eyes: Reports no additional eye complaints ENT: Denies epistaxis Cardiovascular: Cardiovascular: Denies chest pain, Reports pedal edema, Reports leg edema and Denies palpitations Respiratory: Respiratory: Reports dyspnea on exertion Gastrointestinal: Gastrointestinal: Denies abdominal pain Genitourinary: Genitourinary: Denies no additional male genitourinary complaints Comments: Scrotal edema Musculoskeletal: Musculoskeletal: Reports no a
--- NOTE | 2021-06-13 16:04 | PM.PNNEP ---
Progress Note: A&P Additional Plan 1. The patient has anasarca. He has protein in the urine. His creatinine is elevated. He has nephrotic range proteinuria. He has clear-cut sleep apnea per nursing observation but did have an apnea link placed last night. His echocardiogram shows tricuspid regurgitation and pulmonary hypertension consistent with sleep apnea as well. And this would of course contribute to his swelling. CT of the abdomen shows normal liver and spleen. Most likely this is all due to nephrosis complicated by the pulmonary hypertension and tricuspid valve regurgitation. He received some diuretics yesterday and he made 8L of urine. Will continue diuretics for now. Will await for evaluation of the protein and probably will need a biopsy of the kidneys. 2. The patient has elevated creatinine. Renal ultrasound shows normal kidneys. Urine shows nephrotic range protein urinalysis shows blood and protein. He could have a glomerulonephritis. If it is primary it might be MGN, MPGN or FSGS. It could be secondary from diabetes but usually there is no blood in the urine. Amyloidosis or sleep apnea can also cause glomerulonephritis. Will let patient gets stabilized and then do a kidney biopsy down the line. 3. The patient has a hemoglobin of 17. This seems somewhat generous for a patient with a creatinine of 2. Most likely related to the sleep apnea. 4. The patient has hypertension. Blood pressure is better. He is on hydralazine and spironolactone. An TAWNYA-inhibitor would be prudent down the line once we status that his creatinine is not changing. Subjective Date/time seen: 06/13/21 07:50 Interval history: [employer] system used for translation. this patient is alert. He feels better. Edema is better. No chest pain or shortness of breath. Review of Systems Cardiovascular: Cardiovascular: Reports no additional cardiovascular complaints Respiratory: Respiratory: Reports no additional respiratory complaints Gastrointestinal: Gastrointestinal: Reports no additional gastrointestinal complaints Genitourinary: Genitourinary: Reports no additional male genitourinary complaints Exam Narrative: WDWN in NAD skin no rash head ncat lungs clear cor reg no rub abd BS+ nontender and soft ext 2+ edema. Objective Data Vital Signs Vital Signs: Vital Signs - 24 hr 06/12/21 18:00 06/12/21 20:00 06/12/21 20:10 Temperature 36.1 C L Pulse Rate 89 82 84 Respiratory Rate 20 27 H Blood Pressure 154/105 H 159/107 H Pulse Oximetry 94 93 06/12/21 22:00 06/12/21 22:35 06/13/21 00:00 Temperature 36.4 C Pulse Rate 92 77 Respiratory Rate 16 23 H Blood Pressure 163/121 H 167/108 H Pulse Oximetry 99 96 99 06/13/21 00:25 06/13/21 02:00 06/13/21 04:00 Temperature 35.9 C L Pulse Rate 75 77 Respiratory Rate 25 H 21 H Blood Pressure 145/113 H 151/118 H Pulse Oximetry 91 97 100 06/13/21 06:00 06/13/21 08:00 06/13/21 10:00 Temperature 36.6 C 36.6 C Pulse Rate 78 89 83 Respiratory Rate 20 22 H 24 H Blood Pressure 162/127 H 188/141 H 131/104 H Pulse Oximetry 100 98 100 06/13/21 11:10 06/13/21 12:00 06/13/21 14:00 Temperature 36.7 C Pulse Rate 85 85 Respiratory Rate 22 H 29 H Blood Pressure 146/108 H 140/104 H Pulse Oximetry 100 98 98 Intake/Output Intake/Output: Intake & Output 06/10/21 06/11/21 06/12/21 06/13/21 23:59 23:59 23:59 23:59 Intake Total 1360 1220 Output Total 5789 3906 [facility] [id number] [id number] Meds/Results Medications: Active Medications Generic Name Dose Route Start Last Admin Trade Name Freq PRN Reason Stop Dose Admin Enoxaparin Sodium 40 mg 06/12/21 12:25 06/13/21 07:59 Enoxaparin 40 Mg/0.4 Ml Syringe SUB-Q 40 mg DAILY MISTY Administration Furosemide 40 mg 06/13/21 09:00 06/13/21 07:59 Furosemide Inj 40 Mg/4 Ml Vial IV PUSH 40 mg BID MISTY Administration Hydralazine HCl 20 mg 06/12/21 11:49
--- NOTE | 2021-06-13 16:07 | PCCPR ---
non-kazakh speaking, will need video interpretation
[2021-06-13 18:01] LABS: Anion Gap 3 mmol/L (8-16); Blood Urea Nitrogen 24 mg/dL (9-20); Calcium 7.9 mg/dL (8.4-10.2); Carbon Dioxide 31 mmol/L (22-30); Chloride 101 mmol/L (98-107); Estimated CRCL calculation 53 ml/min; Estimated Glomerular Filt Rate 41; Glucose 96 mg/dL (65-110); Potassium 3.6 mmol/L (3.4-5.0); Sodium 135 mmol/L (137-145)
[2021-06-14] VITALS (12 sets, daily range): BP systolic 137–177; BP diastolic 85–116; PULSE 78–90; RESP 20–26; TEMP 36–36.8; O2SAT 97–100
[2021-06-14 04:47] LABS: Basophils Absolute Auto 0.1 K/mm3 (0.0-0.1); Basophils Percent Auto 0.5 % (0.2-1.2); Eosinophils Absolute Auto 0.2 K/mm3 (0-0.3); Eosinophils Percent Auto 1.6 % (0-4.4); Hematocrit 51.8 % (42.0-52.0); Hemoglobin 17.1 g/dL (14.0-18.0); Immature Granulocyte Absolute 0.02 K/mm3 (0.00-0.031); Immature Granulocyte Percent A 0.2 % (0-0.5); Lymphocytes Absolute Auto 1.39 K/mm3 (0.9-3.2); Lymphocytes Percent Auto 15.1 % (18.3-44.2); Mean Corpuscular Hemoglobin 30.2 pg (26-34); Mean Corpuscular Volume 91.4 fl (80-100); Mean Platelet Volume 11.3 fl (7.4-10.4); Monocytes Absolute Auto 0.6 K/mm3 (0.1-0.6); Monocytes Percent Auto 6.4 % (2.6-8.5); Neutrophils Percent Auto 76.2 % (45.5-73.1); Platelet Count Result 209 k/mm3 (150-375); Red Blood Count 5.67 M/mm3 (4.6-6.20); Red Cell Distribution Width 13.9 % (11.5-14.5); White Blood Count 9.2 K/mm3 (4.5-10.0)
[2021-06-14 05:03] LABS: Alanine Aminotransferase 44 U/L (4-50); Alkaline Phosphatase 88 U/L (38-126); Anion Gap 2 mmol/L (8-16); Aspartate Amino Transferase 32 U/L (17-59); Bilirubin,Total 0.8 mg/dL (0.2-1.3); Blood Urea Nitrogen 21 mg/dL (9-20); Carbon Dioxide 32 mmol/L (22-30); Chloride 101 mmol/L (98-107); Estimated CRCL calculation 53 ml/min; Estimated Glomerular Filt Rate 41; Glucose 99 mg/dL (65-110); Magnesium 2.2 mg/dL (1.6-2.3); Potassium 3.8 mmol/L (3.4-5.0); Sodium 135 mmol/L (137-145)
[2021-06-14] MEDS: LABETALOL HCL INJ 100 MG/20 ML VIAL 20 MG IV PUSH (06:38)
--- NOTE | 2021-06-14 08:00 | EST_ITS ---
Patient Info Name: Danny Garcia Age: 36 years : 1985 Gender: Male Ht: 65 in Wt: 214 lbs BSA: 2.15 m2 HR: 84 bpm BP: 155 / 114 mmHg Heart Rhythm: Sinus Rhythm Exam Date: 06/14/2021 10:31 AM Exam Location: [facility] Stress Patient Status: Inpatient Admit Date: 06/12/2021 Staff Ordering Physician: Josee Juan MD Attending Provider: Tk Sanders MD Exercise Technologist: Pat Paul CT Nurse: VINNY RAMOS Exam Type: CA stress júnior w NM Study Info Indications I50.20 - Unspecified systolic (congestive) heart failure A regadenoson stress test was performed. Summary 1. No abnormal ST-T wave changes with lexiscan. 2. Nuclear test results to follow. Protocol: Lexiscan Stress ECG Details Stage: REST Duration (min): 1 min : 45 sec HR (bpm): 83 SBP (mmHg): 156 DBP (mmHg): 121 Stage: REST Duration (min): 13 min : 53 sec HR (bpm): 82 SBP (mmHg): 155 DBP (mmHg): 114 Stage: STAGE 1 Duration (min): 1 min : 0 sec HR (bpm): 88 SBP (mmHg): 156 DBP (mmHg): 107 Stage: RECOVERY Duration (min): 1 min : 0 sec HR (bpm): 95 SBP (mmHg): 156 DBP (mmHg): 107 Stage: RECOVERY Duration (min): 2 min : 0 sec HR (bpm): 96 SBP (mmHg): 156 DBP (mmHg): 107 Stage: RECOVERY Duration (min): 3 min : 0 sec HR (bpm): 94 SBP (mmHg): 151 DBP (mmHg): 102 Stage: RECOVERY Duration (min): 3 min : 23 sec HR (bpm): 94 SBP (mmHg): 151 DBP (mmHg): 102 Rest HR: 82 bpm Peak HR: 96 bpm Rest Sys BP: 155 mmHg Peak Sys BP: 156 mmHg Max Pred HR: 185 bpm % Max Pred HR: 52 % Target HR: 157 bpm Max RPP: 14,976 bpm*mmHg BP Response: Patient exhibited a hypertensive response with stress Termination Reason: Completed protocol Cardiac Symptoms: None Total Time: 1 min : 0 sec Rest Zee BP: 114 mmHg Peak Zee BP: 107 mmHg Total Dose: 0.4 mg Resting ECG Normal sinus rhythm - normal ECG. Stress ECG No abnormal ST/T wave changes with exercise. Arrhythmias None. Report Signatures
--- NOTE | 2021-06-14 09:50 | PM.PNPUL ---
Progress Note: A&P Assessment and Plan (1) Hypoxia: Code(s): R09.02 - Hypoxemia Status: Acute Assessment and Plan: 06/13 Patient with obesity, overnight oximetry requiring 2 L nasal cannula with intermittent sharp desats consistent with obstructive or apneic episodes, right and left heart failure with pulmonary arterial systolic pressure of 55. ABG on 2 L during the day shows a pH of 7.43/47/99 so there is no evidence of chronic hypercarbic respiratory failure that would qualify him for empiric PAP therapy. I suspect the patient has obstructive sleep apnea and he will need an outpatient sleep study to confirm this. In the meantime I agree with 2 L nasal cannula at night to avoid nocturnal hypoxemia. Patient does have an elevated PASP at 55 in the etiologies of this include left sided heart failure and untreated obstructive sleep apnea. I do not recommend empiric treatment with CPAP or BiPAP given that this may elicit treatment emergent central apneas. TSH is normal at 3.28 on 06/12/2021 Cardiology has been consulted regarding the workup is heart failure. Agree with Lasix as tolerated by his cardiac and renal systems and this may be challenging given his creatinine of 2.0. Nephrology has been consulted. He has no history of asthma and is a never smoker and there is no need for any bronchodilators or antibiotics from my perspective. wean oxygen during the day as tolerated to maintain saturations 90-94%. 06/14 Patient states that he is breathing normal. Denies any cough, phlegm production or hemoptysis. Denies chest pain. Patient continues to diurese well, -9 0.5 L since admission. Chest x-ray today demonstrated mild pulmonary edema and low lung volumes. Patient does 2 L nasal cannula with saturations 99%. Once patient is diuresed and closer to euvolemic, I would assess him for supplemental oxygen during the day with a formal home O2 assessment on the day of discharge and an overnight oximetry on room air the night prior to discharge. he should be discharged on supplemental oxygen as needed. Follow up in the Pulmonary Clinic in 2-3 weeks following his discharge so that an outpatient polysomnogram can be scheduled. I gave him our business card and informed our surgical scheduler. Discussed with Dr. Sanders, will sign off, call with questions. Subjective Date/time seen: 06/14/21 09:50 Interval history: 06/13/2021: This is a new pulmonary consult for nocturnal hypoxemia 36-year-old Faroese-speaking man with obesity presented to the hospital with hypertensive emergency, acute kidney injury, generalized swelling. patient was found to have Generalized edema, elevated BNP, CT of the abdomen that showed anasarca with pulmonary edema and small bilateral pleural effusions and a small amount of ascites. Patient had cardiomegaly as well. Patient was treated IV Lasix. Patient had an echocardiogram demonstrated left ventricular dysfunction with an EF of 30-35%, grade 2 diastolic dysfunction, normal right ventricular size but reduced systolic function, mildly enlarged left atrium mildly enlarged rate 18 room mild to moderate tricuspid regurgitation with a PA SP of 55. [place] had an overnight oximetry last night on room air but had desaturations to 70%. He was then placed on 2 L and his saturations remained 97-98% with 3 sharp desaturations less than 88%. I obtained the history through a healthcare translator. The patient denies any prior respiratory illnesses such as asthma or COPD. He has never been on respiratory medicines are oxygen in the past. He has no respiratory limitations in his activities of daily living. The patient is a never smoker. 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 Patient works in the [employer] at [place] [employer]. He has no family history of respiratory disease. Patient lives alone and does not know if
--- NOTE | 2021-06-14 12:49 | PM.PNCARD ---
Progress Note: A&P Assessment and Plan (1) Acute combined systolic and diastolic congestive heart failure: Code(s): I50.41 - Acute combined systolic (congestive) and diastolic (congestive) heart failure Status: Acute Assessment and Plan: Patient presents with acute systolic and diastolic heart failure, new onset with an ejection fraction of 30-35%. Likely hypertensive, although surprisingly his EKG does not show LVH. He did have LVH and LV enlargement on his echo. Improving with IV diuretics and blood pressure control Agree with hydralazine and metoprolol; will titrate metoprolol as an outpatient. Add nitrates to the hydralazine Continue spironolactone Check BMP in a.m. Will probably be able to shift him to p.o. diuretics tomorrow Will hold off on Entresto or losartan, and Farxiga, for the moment, due to his kidney disease. Underwent lexiscan stress test this morning - no definite ischemia or infarct, no segmental WMA. EF 31% (2) Hypertensive cardiomyopathy: Code(s): I11.9 - Hypertensive heart disease without heart failure; I43 - Cardiomyopathy in diseases classified elsewhere Status: Acute Assessment and Plan: Severely elevated blood pressure on admission of uncertain duration. The left ventricular enlargement and LVH seen on echo suggested this is a longstanding problem. Improving Okay to transfer to a telemetry bed Odd that he would have such severe hypertension with apparently no family history of hypertension. Will check for a cause with metanephrines and renin/aldosterone. (3) Hypertensive emergency: Code(s): I16.1 - Hypertensive emergency Status: Acute Assessment and Plan: Treated severe hypertension emergently withnicardipine and ICU evaluation. Improved. (4) Acute kidney injury: Code(s): N17.9 - Acute kidney failure, unspecified Status: Acute Assessment and Plan: Creatinine has remained stable with impressive diuresis. Dr. Samson following Subjective Date/time seen: 06/14/21 12:49 Cardiology follow up for HTN, cardiomyopathy, CHF He is feeling better today. Swelling is improving. He does not have any chest pain or shortness of breath. Review of Systems Constitutional: Constitutional: Reports fatigue Eyes: Eyes: Reports no additional eye complaints ENT: Denies epistaxis Cardiovascular: Cardiovascular: Denies chest pain, Reports pedal edema, Reports leg edema, Denies palpitations and Reports dyspnea on exertion Respiratory: Respiratory: Reports dyspnea on exertion Gastrointestinal: Gastrointestinal: Denies abdominal pain Genitourinary: Genitourinary: Denies no additional male genitourinary complaints Musculoskeletal: Musculoskeletal: Reports no additional musculoskeletal complaints Integumentary/Breasts: Skin/Breast: Denies rash Neurologic: Reports system reviewed and no additional complaints, except as documented Psychiatric: Psychiatric: Reports no additional psychiatric complaints Endocrine: Endocrine: Reports fatigue and Denies palpitations Exam Narrative: Pleasant young male in no distress Const: General: comfortable and no acute distress HENMT: Mouth: Yes moist mucous membranes Eyes: EOM: EOMs intact bilaterally Neck: Neck: supple and no JVD Thyroid: thyroid normal Lymphatic: lymphadenopathy not noted Resp: Effort & Inspection: normal respiratory effort Auscultation: clear to auscultation bilaterally Cardio: Rate: regular rate Rhythm: regular rhythm Heart sounds: no gallops and no murmurs GI: Inspection: non-distended Skin: General skin exam: no rashes or lesions noted Neuro: Cognition (Neuro): normal cognition Speech: normal speech Extrem: General: edema and pedal edema Other: Mild edema bilateral LE's Psych: Mental Status: mental status grossly normal Affect: normal affect Objective Data Vital Signs Vital Signs: Vital Signs - 24 hr 06/13/21 14:00 06/13/21 16
[2021-06-14] MEDS: FUROSEMIDE INJ 40 MG/4 ML VIAL IV PUSH ×2 (14:03→16:54)
[2021-06-14] MEDS: ENOXAPARIN 40 MG/0.4 ML SYRINGE SUB-Q (14:03)
[2021-06-14] MEDS: POTASSIUM CHLORIDE 20 MEQ TABLET.ER 40 MEQ PO (14:03)
[2021-06-14] MEDS: hydrALAZINE HCL 25 MG TABLET PO ×3 (14:03→20:29)
[2021-06-14] MEDS: SPIRONOLACTONE 25 MG TABLET PO (14:04)
[2021-06-14] MEDS: METOPROLOL TARTRATE 25 MG TABLET PO ×2 (14:04→20:29)
[2021-06-14] MEDS: ISOSORBIDE MONONITRATE 30 MG TAB.ER.24H PO (14:04)
--- NOTE | 2021-06-14 14:22 | PM.PNNEP ---
Progress Note: A&P Additional Plan 1. The patient has anasarca. He has protein in the urine. His creatinine is elevated. He has nephrotic range proteinuria. He has clear-cut sleep apnea per nursing observation but did have an apnea link placed last night. His echocardiogram shows tricuspid regurgitation and pulmonary hypertension consistent with sleep apnea as well. And this would of course contribute to his swelling. CT of the abdomen shows normal liver and spleen. He seems to be improving. continue diuretics. 2. The patient has elevated creatinine. Renal ultrasound shows normal kidneys. Urine shows nephrotic range protein urinalysis shows blood and protein. He could have a glomerulonephritis. If it is primary it might be MGN, MPGN or FSGS. It could be secondary from diabetes but usually there is no blood in the urine. Amyloidosis or sleep apnea can also cause glomerulonephritis. Will let patient get stabilized and then do a kidney biopsy down the line. 3. The patient has a hemoglobin of 17. This seems somewhat generous for a patient with a creatinine of 2. Most likely related to the sleep apnea. 4. The patient has hypertension. Blood pressure is better. He is on hydralazine and spironolactone. The patient's creatinine is not changing. Most likely this is chronic kidney disease. Will add an Pradip inhibitor to help with the proteinuria as well as the blood pressure. Subjective Date/time seen: 06/14/21 14:22 Interval history: [employer] system used for translation. this patient is alert. He feels better. Edema is better. His scrotum has shrunk. He is eating okay. No chest pain or shortness of breath. Exam Narrative: WDWN in NAD skin no rash or subcu nodules head ncat lungs clear cor reg no rub abd BS+ nontender and soft ext 2+ edema. Objective Data Vital Signs Vital Signs: Vital Signs - 24 hr 06/13/21 16:00 06/13/21 20:00 06/13/21 20:50 Temperature 36.6 C Pulse Rate 86 85 93 Respiratory Rate 26 H 23 H Blood Pressure 146/116 H Pulse Oximetry 100 98 06/14/21 00:00 06/14/21 02:18 06/14/21 04:00 Temperature 36.0 C L Pulse Rate 80 86 Respiratory Rate 21 H Blood Pressure 137/93 H Pulse Oximetry 99 99 06/14/21 06:38 06/14/21 08:00 06/14/21 12:00 Temperature 36.7 C Pulse Rate 89 78 85 Respiratory Rate 22 H Blood Pressure 146/113 H Pulse Oximetry 100 06/14/21 14:00 06/14/21 14:04 Temperature Pulse Rate 90 85 Respiratory Rate 22 H Blood Pressure 177/116 H Pulse Oximetry 98 Intake/Output Intake/Output: Intake & Output 06/11/21 06/12/21 06/13/21 06/14/21 23:59 23:59 23:59 23:59 Intake Total 1360 1460 200 Output Total 5775 4330 0540 [id number] [id number] -2200 Meds/Results Medications: Active Medications Generic Name Dose Route Start Last Admin Trade Name Freq PRN Reason Stop Dose Admin Enoxaparin Sodium 40 mg 06/12/21 12:25 06/14/21 14:03 Enoxaparin 40 Mg/0.4 Ml Syringe SUB-Q 40 mg DAILY MISTY Administration Furosemide 40 mg 06/13/21 09:00 06/14/21 14:03 Furosemide Inj 40 Mg/4 Ml Vial IV PUSH 40 mg BID MISTY Administration Hydralazine HCl 20 mg 06/12/21 11:49 Hydralazine Hcl 20 Mg/Ml Vial IV PUSH Q4H PRN SBP > 170 -2nd choice Hydralazine HCl 25 mg 06/12/21 17:00 06/14/21 14:04 Hydralazine Hcl 25 Mg Tablet PO Not Given QID MISTY Nicardipine/Sodium Chloride 20 mg in 200 mls @ 0 mls/hr 06/12/21 09:30 06/12/21 12:58 Cardene 20 Mg/200 Ml Ns IV CONT 0 mg/hr .Q0M MISTY 0 mls/hr Infusion 0 MG/HR Isosorbide Mononitrate 30 mg 06/14/21 09:00 06/14/21 14:04 Isosorbide Mononitrate 30 Mg Tab.Er.24h PO 30 mg QAM MISTY Administration Labetalol HCl 20 mg 06/12/21 11:49 06/14/21 06:38 Labetalol Hcl Inj 100 Mg/20 Ml Vial IV PUSH 20 mg Q4H PRN Administration SBP > 170 - 1st choice Metoprolol Tartrate 25 mg 06/12/21 12:20
[2021-06-14] MEDS: lisinopriL 20 MG TABLET PO (16:54)
--- NOTE | 2021-06-14 16:59 | PM.IMPN ---
Progress Note: A&P Assessment and Plan (1) Hypertensive emergency: Code(s): I16.1 - Hypertensive emergency Status: Acute Assessment and Plan: started on Nicardipine drip in admitted to the ICU Cardiology consulted Adjust his oral medication currently on furosemide IV b.i.d. hydralazine lisinopril metoprolol and Imdur and spironolactone (2) Acute kidney injury: Code(s): N17.9 - Acute kidney failure, unspecified Status: Acute Assessment and Plan: Probable related to hypertensive urgency and CHF exacerbation Concern for glomerular nephritis concern for nephrotic syndrome autoimmune workup pending Nephrology consult IV Lasix Renal ultrasound with no hydronephrosis Creatinine admission2.0; stable creatinine Has nephrotic range proteinuria (3) Anasarca: Code(s): R60.1 - Generalized edema Status: Acute Assessment and Plan: Reviewed CT scan shows anasarca pulmonary edema pleural effusion multifactorial most likely related to hypertensive urgency and acute renal failure cannot rule out nephrotic syndrome Continue IV diuresis Echo shows ejection fraction 35% (4) Hypoxia: Code(s): R09.02 - Hypoxemia Status: Acute Assessment and Plan: Multifactorial secondary to pulmonary edema and obstructive sleep apnea pulmonology consulted sleep study as outpatient continue IV diuresis Pulmonary following Echo with tricuspid regurgitation and pulmonary hypertension consistent with sleep apnea needs outpatient workup with sleep study as an outpatient basis (5) Cardiomyopathy: Code(s): I42.9 - Cardiomyopathy, unspecified Status: Acute Assessment and Plan: Acute systolic CHF exacerbation cardiology consult Stress test negative 06/14/2021 On IV diuresis (6) Abnormal urinalysis: Code(s): R82.90 - Unspecified abnormal findings in urine Status: Acute Assessment and Plan: however no symptoms, [id number] growth of Enterococcus likely contamination since asymptomatic will not treat with any antibiotics Subjective Date/time seen: 06/14/21 16:59 Interval history: 36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 He states swelling is getting better and office scrotal area. Denies any fever chills. Denies any shortness of breath or chest pain. Review of Systems Review of Systems: All systems reviewed & are unremarkable except as noted in HPI and below (HPI) Exam Narrative: GENERAL: The patient is well developed, not in acute distress HEENT: Nonicteric sclerae, PERRLA, EOMI. Oropharynx clear. Moist mucous membranes. Conjunctivae appear well perfused. CHEST: Chest wall is nontender. HEART: Regular rate and rhythm without murmur, rubs, or gallops LUNGS: Clear to auscultation bilaterally. no respiratory distress ABDOMEN: Soft, positive bowel sounds, non-tender, no organomegaly. SKIN: No rash, no excessive bruising, petechiae, or purpura. NEUROLOGIC: Cranial nerves II-XII intact, alert and oriented x 3, no gross motor deficits EXTREMITIES: Bilateral lower extremity edema 1+, no cyanosis or clubbing Objective Data Vital Signs Vital Signs: Vital Signs - 24 hr 06/13/21 20:00 06/13/21 20:50 06/14/21 00:00 Temperature 96.8 F L Pulse Rate 85 93 80 Respiratory Rate 23 H 21 H Blood Pressure 137/93 H Pulse Oximetry 98 99 06/14/21 02:18 06/14/21 04:00 06/14/21 06:38 Temperature Pulse Rate 86 89 Respiratory Rate Blood Pressure Pulse Oximetry 99 06/14/21 08:00 06/14/21 12:00 06/14/21 14:00 Temperature 98.0 F Pulse Rate 78 85 90 Respiratory Rate 22 H
[2021-06-15] VITALS (10 sets, daily range): BP systolic 120–147; BP diastolic 66–94; PULSE 78–98; RESP 17–30; TEMP 36.1–36.5; O2SAT 94–100
[2021-06-15 03:57] LABS: Alanine Aminotransferase 32 U/L (4-50); Albumin Level 2.9 g/dL (3.5-5.1); Alkaline Phosphatase 80 U/L (38-126); Anion Gap 1 mmol/L (8-16); Aspartate Amino Transferase 27 U/L (17-59); Bilirubin,Total 0.9 mg/dL (0.2-1.3); Blood Urea Nitrogen 21 mg/dL (9-20); Carbon Dioxide 34 mmol/L (22-30); Chloride 100 mmol/L (98-107); Estimated CRCL calculation 56 ml/min; Estimated Glomerular Filt Rate 43; Glucose 99 mg/dL (65-110); Phosphorus 4.2 mg/dL (2.5-4.5); Potassium 3.6 mmol/L (3.4-5.0); Sodium 135 mmol/L (137-145)
[2021-06-15] MEDS: hydrALAZINE HCL 25 MG TABLET PO ×4 (09:16→19:58)
[2021-06-15] MEDS: lisinopriL 20 MG TABLET PO (09:16)
[2021-06-15] MEDS: POTASSIUM CHLORIDE 20 MEQ TABLET.ER 40 MEQ PO (09:16)
[2021-06-15] MEDS: ENOXAPARIN 40 MG/0.4 ML SYRINGE SUB-Q (09:16)
[2021-06-15] MEDS: FUROSEMIDE INJ 40 MG/4 ML VIAL IV PUSH ×2 (09:17→17:43)
[2021-06-15] MEDS: SPIRONOLACTONE 25 MG TABLET PO (09:17)
[2021-06-15] MEDS: ISOSORBIDE MONONITRATE 30 MG TAB.ER.24H PO (09:18)
[2021-06-15] MEDS: METOPROLOL TARTRATE 25 MG TABLET PO ×2 (09:19→19:57)
--- NOTE | 2021-06-15 09:28 | PM.PNCARD ---
Progress Note: A&P Additional Plan Okay for discharge today on current medical regimen blood pressure control is now acceptable. Nephrology may be planning further workup given his nephrotic syndrome. Will arrange for follow-up in our office regarding his LV systolic dysfunction. For now blood pressure seems to be nicely controlled with lisinopril metoprolol and spironolactone. Hiro Nieves MD [facility] Subjective Date/time seen: Date of service 06/15/21 09:28 Interval history: Follow-up visit in this 36-year-old gentleman with: Significant hypertension with renal insufficiency as well as cardiomyopathy. Patient has been started on TAWNYA-inhibitor beta-ramon and spironolactone with very good response. Asymptomatic this morning hope is for him to be discharged. Patient offers no complaints this morning is hoping to be able to be discharged. 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 Exam Narrative: Pleasant young male in no distress Const: General: comfortable and no acute distress HENMT: Mouth: Yes moist mucous membranes Eyes: EOM: EOMs intact bilaterally Neck: Neck: supple and no JVD Thyroid: thyroid normal Lymphatic: lymphadenopathy not noted Resp: Effort & Inspection: normal respiratory effort Auscultation: clear to auscultation bilaterally Other: Rales in both bases, 1/3 up on the left Cardio: Rate: regular rate Rhythm: regular rhythm Heart sounds: no gallops and no murmurs GI: Inspection: non-distended Skin: General skin exam: no rashes or lesions noted Neuro: Cognition (Neuro): normal cognition Speech: normal speech Extrem: General: edema and pedal edema Other: Mild edema bilateral LE's Psych: Mental Status: mental status grossly normal Affect: normal affect Objective Data Vital Signs Vital Signs: Vital Signs - 24 hr 06/14/21 12:00 06/14/21 14:00 06/14/21 14:04 Temperature Pulse Rate 85 90 85 Respiratory Rate 22 H Blood Pressure 177/116 H Pulse Oximetry 98 06/14/21 16:00 06/14/21 20:00 06/14/21 20:29 Temperature 36.8 C Pulse Rate 87 78 84 Respiratory Rate 26 H 20 Blood Pressure 141/85 H Pulse Oximetry 97 98 06/14/21 21:25 06/15/21 00:00 06/15/21 04:00 Temperature 36.1 C L Pulse Rate 78 81 Respiratory Rate 22 H Blood Pressure 134/79 Pulse Oximetry 98 97 06/15/21 09:19 Temperature Pulse Rate 90 Respiratory Rate Blood Pressure Pulse Oximetry Intake/Output Intake/Output: Intake & Output 06/12/21 06/13/21 06/14/21 06/15/21 23:59 23:59 23:59 23:59 Intake Total 1360 1460 870 500 Output Total 5705 4330 4750 1100 [facility] -4415 -2870 -3880 -600 Meds/Results Medications: Active Medications Generic Name Dose Route Start Last Admin Trade Name Freq PRN Reason Stop Dose Admin Enoxaparin Sodium 40 mg 06/12/21 12:25 06/15/21 09:16 Enoxaparin 40 Mg/0.4 Ml Syringe SUB-Q 40 mg DAILY MISTY Administration Furosemide 40 mg 06/13/21 09:00 06/15/21 09:17 Furosemide Inj 40 Mg/4 Ml Vial IV PUSH 40 mg BID MISTY Administration Hydralazine HCl 20 mg 06/12/21 11:49 Hydralazine Hcl 20 Mg/Ml Vial IV PUSH Q4H PRN SBP > 170 -2nd choice Hydralazine HCl 25 mg 06/12/21 17:00 06/15/21 09:16 Hydralazine Hcl 25 Mg Tablet PO 25 mg QID MISTY Administration Nicardipine/Sodium Chloride 20 mg in 200 mls @ 0 mls/hr 06/12/21 09:30 06/12/21 12:58 Cardene 20 Mg/200 Ml Ns IV CONT 0 mg/hr .Q0M MISTY 0 mls/hr Infusion 0 MG/HR Isosorbide Mononitrate 30 mg 06/14/21 09:00 06/15/21 09:18 Isosorbide Mononitrate 30 Mg Tab.Er.24h PO 30 mg QAM MISTY Administration Labetalol HCl 20 mg 06/12/21 11:49 06/14/21 06:38 Labetalol Hcl Inj 100 Mg/20 Ml Vial IV PUSH 20 mg Q4H PRN Administration SBP > 170 - 1st choice Lisinopril 20 mg 06/14/21 14:25
--- NOTE | 2021-06-15 10:07 | PM.PNNEP ---
Progress Note: A&P Additional Plan 1. The patient has anasarca. He has protein in the urine. His creatinine is elevated. He has nephrotic range proteinuria. He has clear-cut sleep apnea per nursing observation but did have an apnea link placed last night. His echocardiogram shows tricuspid regurgitation and pulmonary hypertension consistent with sleep apnea as well. And this would of course contribute to his swelling. CT of the abdomen shows normal liver and spleen. He seems to be improving. continue diuretics. 2. The patient has elevated creatinine. Renal ultrasound shows normal kidneys. Urine shows nephrotic range protein urinalysis shows blood and protein. He could have a glomerulonephritis. I since the heart studies show no ischemia then I think it is okay to go ahead and do a kidney biopsy. Order for today if we can get it done. 3. The patient has a hemoglobin of 17. This seems somewhat generous for a patient with a creatinine of 2. Most likely related to the sleep apnea. 4. The patient has hypertension. Blood pressure is better. He is on hydralazine , lisinopril, and spironolactone. Subjective Date/time seen: 06/15/21 10:07 Interval history: [employer] system used for translation. this patient is Feeling okay. No chest pain or shortness of breath. Eating well. Exam Narrative: WDWN in NAD skin no rash or subcu nodules head ncat lungs clear bilaterally cor reg no rub abd BS+ nontender and soft ext 1-2+ edema. Objective Data Vital Signs Vital Signs: Vital Signs - 24 hr 06/14/21 12:00 06/14/21 14:00 06/14/21 14:04 Temperature Pulse Rate 85 90 85 Respiratory Rate 22 H Blood Pressure 177/116 H Pulse Oximetry 98 06/14/21 16:00 06/14/21 20:00 06/14/21 20:29 Temperature 36.8 C Pulse Rate 87 78 84 Respiratory Rate 26 H 20 Blood Pressure 141/85 H Pulse Oximetry 97 98 06/14/21 21:25 06/15/21 00:00 06/15/21 04:00 Temperature 36.1 C L Pulse Rate 78 81 Respiratory Rate 22 H Blood Pressure 134/79 Pulse Oximetry 98 97 06/15/21 09:19 Temperature Pulse Rate 90 Respiratory Rate Blood Pressure Pulse Oximetry Intake/Output Intake/Output: Intake & Output 04/05/22 06/13/21 06/14/21 06/15/21 23:59 23:59 23:59 23:59 Intake Total 1360 1460 870 500 Output Total 5795 4330 2250 1100 Balance -4415 -2870 -3880 -600 Meds/Results Medications: Active Medications Generic Name Dose Route Start Last Admin Trade Name Freq PRN Reason Stop Dose Admin Enoxaparin Sodium 40 mg 06/12/21 12:25 06/15/21 09:16 Enoxaparin 40 Mg/0.4 Ml Syringe SUB-Q 40 mg DAILY MISTY Administration Furosemide 40 mg 06/13/21 09:00 06/15/21 09:17 Furosemide Inj 40 Mg/4 Ml Vial IV PUSH 40 mg BID MISTY Administration Hydralazine HCl 20 mg 06/12/21 11:49 Hydralazine Hcl 20 Mg/Ml Vial IV PUSH Q4H PRN SBP > 170 -2nd choice Hydralazine HCl 25 mg 06/12/21 17:00 06/15/21 09:16 Hydralazine Hcl 25 Mg Tablet PO 25 mg QID MISTY Administration Nicardipine/Sodium Chloride 20 mg in 200 mls @ 0 mls/hr 06/12/21 09:30 06/12/21 12:58 Cardene 20 Mg/200 Ml Ns IV CONT 0 mg/hr .Q0M MISTY 0 mls/hr Infusion 0 MG/HR Isosorbide Mononitrate 30 mg 06/14/21 09:00 06/15/21 09:18 Isosorbide Mononitrate 30 Mg Tab.Er.24h PO 30 mg QAM MISTY Administration Labetalol HCl 20 mg 06/12/21 11:49 06/14/21 06:38 Labetalol Hcl Inj 100 Mg/20 Ml Vial IV PUSH 20 mg Q4H PRN Administration SBP > 170 - 1st choice Lisinopril 20 mg 06/14/21 14:25 06/15/21 09:16 Lisinopril 20 Mg Tablet PO 20 mg QAM MISTY Administration Metoprolol Tartrate 25 mg 06/12/21 12:20 06/15/21 09:19 Metoprolol Tartrate 25 Mg Tablet PO 25 mg Q12HR MISTY Administration Perflutren Lipid Microsphere 0 ml 06/12/21 10:41 Perflutren Lipid Microspheres 1.5 Ml Vial Diluted To 10 Ml Total Volume IV PUSH ONCE PRN ad
--- NOTE | 2021-06-15 10:10 | P.PNCROSS_ITS ---
Event Note Event Note Event Note: using the stratus associate program manager, we discussed the risks benefits alternatives and process of a kidney biopsy. The patient agrees to proceed.
--- NOTE | 2021-06-15 10:10 | PM.EVENT ---
Event Note Event Note Event Note: using the stratus physical medicine specialist, we discussed the risks benefits alternatives and process of a kidney biopsy. The patient agrees to proceed.
[2021-06-15 12:44] LABS: Prothrombin Time 13.1 Seconds (11.1-14.7)
--- NOTE | 2021-06-15 16:45 | PM.IMPN ---
Progress Note: A&P Assessment and Plan (1) Hypertensive emergency: Code(s): I16.1 - Hypertensive emergency Status: Acute Assessment and Plan: started on Nicardipine drip in admitted to the ICU Cardiology consulted Adjust his oral medication currently on furosemide IV b.i.d. hydralazine lisinopril metoprolol and Imdur and spironolactone (2) Acute kidney injury: Code(s): N17.9 - Acute kidney failure, unspecified Status: Acute Assessment and Plan: Probable related to hypertensive urgency and CHF exacerbation Concern for glomerular nephritis concern for nephrotic syndrome autoimmune workup pending Nephrology consult IV Lasix Renal ultrasound with no hydronephrosis Creatinine admission2.0; stable creatinine Has nephrotic range proteinuria Will has recommended kidney biopsy which is scheduled to go for today (3) Anasarca: Code(s): R60.1 - Generalized edema Status: Acute Assessment and Plan: Reviewed CT scan shows anasarca pulmonary edema pleural effusion multifactorial most likely related to hypertensive urgency and acute renal failure cannot rule out nephrotic syndrome Continue IV diuresis Echo shows ejection fraction 35% (4) Hypoxia: Code(s): R09.02 - Hypoxemia Status: Acute Assessment and Plan: Multifactorial secondary to pulmonary edema and obstructive sleep apnea pulmonology consulted sleep study as outpatient continue IV diuresis Pulmonary following Echo with tricuspid regurgitation and pulmonary hypertension consistent with sleep apnea needs outpatient workup with sleep study as an outpatient basis Is nearing discharge so will order overnight oximetry again today on room air (5) Cardiomyopathy: Code(s): I42.9 - Cardiomyopathy, unspecified Status: Acute Assessment and Plan: Acute systolic CHF exacerbation cardiology consult Stress test negative 06/14/2021 On IV diuresis (6) Abnormal urinalysis: Code(s): R82.90 - Unspecified abnormal findings in urine Status: Acute Assessment and Plan: however no symptoms, [id number] growth of Enterococcus likely contamination since asymptomatic will not treat with any antibiotics Subjective Date/time seen: 06/15/21 16:45 Interval history: 36 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 He states swelling is getting better and office scrotal area. Denies any fever chills. Denies any shortness of breath or chest pain. 06/15/2021 no overnight events. He states he is feeling better. He is going for kidney biopsy today. Review of Systems Review of Systems: All systems reviewed & are unremarkable except as noted in HPI and below (HPI) Exam Narrative: GENERAL: The patient is well developed, not in acute distress HEENT: Nonicteric sclerae, PERRLA, EOMI. Oropharynx clear. Moist mucous membranes. Conjunctivae appear well perfused. CHEST: Chest wall is nontender. HEART: Regular rate and rhythm without murmur, rubs, or gallops LUNGS: Clear to auscultation bilaterally. no respiratory distress ABDOMEN: Soft, positive bowel sounds, non-tender, no organomegaly. SKIN: No rash, no excessive bruising, petechiae, or purpura. NEUROLOGIC: Cranial nerves II-XII intact, alert and oriented x 3, no gross motor deficits EXTREMITIES: Bilateral lower extremity edema 1+, no cyanosis or clubbing Objective Data Vital Signs Vital Signs: Vital Signs - 24 hr 06/14/21 20:00 06/14/21 20:29 06/14/21 21:25 Temperature Pulse Rate 78 84 Respiratory Rate 20 Blood Pressure Pulse Oximetry 98 98 06/15/21 00:00 06/15/21 04:00
[2021-06-15 19:37] LABS: Complement Total CH50 >60 U/mL (31-60)
[2021-06-15 20:22] LABS: Anti Glomerular Basement Memb <1.0 AI (<1.0)
--- NOTE | 2021-06-15 21:48 | PC.NURSE ---
This patient, Danny Garcia, was transferred to [facility] on 06/15/21 at 2130. Personal belongings sent with patient. Report given to Ruddy. Appropriate documentation sent with patient.
--- NOTE | 2021-06-15 21:48 | PC.NURSE ---
This patient, Danny Garcia, was received from [[id number] ] on 06/15/21 at 2125. Patient/family oriented to unit policies and routines. 2150: RT currently placing patient on apneic link.
[2021-06-15 23:46] LABS: Lambda Light Chain 30.6 mg/L (5.7-26.3)
[2021-06-16] VITALS: PULSE 78
[2021-06-16 04:11] VITALS: PULSE 89
[2021-06-16 04:44] VITALS: BP 148/88; PULSE 92; RESP 18; TEMP 36.8; O2SAT 96
[2021-06-16 05:36] LABS: Hematocrit 56.6 % (42.0-52.0); Hemoglobin 18.3 g/dL (14.0-18.0); Mean Corpuscular HGB Conc 32.3 g/dl (32-36); Mean Corpuscular Hemoglobin 29.7 pg (26-34); Mean Corpuscular Volume 91.7 fl (80-100); Mean Platelet Volume 10.9 fl (7.4-10.4); Platelet Count Result 227 k/mm3 (150-375); Red Blood Count 6.17 M/mm3 (4.6-6.20); Red Cell Distribution Width 13.5 % (11.5-14.5); White Blood Count 9.3 K/mm3 (4.5-10.0)
[2021-06-16 05:51] LABS: Alanine Aminotransferase 32 U/L (4-50); Albumin Level 3.3 g/dL (3.5-5.1); Alkaline Phosphatase 95 U/L (38-126); Anion Gap 4 mmol/L (8-16); Aspartate Amino Transferase 28 U/L (17-59); Bilirubin,Total 1.1 mg/dL (0.2-1.3); Blood Urea Nitrogen 21 mg/dL (9-20); Calcium 8.1 mg/dL (8.4-10.2); Carbon Dioxide 30 mmol/L (22-30); Chloride 99 mmol/L (98-107); Estimated CRCL calculation 52 ml/min; Estimated Glomerular Filt Rate 41; Glucose 100 mg/dL (65-110); Phosphorus 4.3 mg/dL (2.5-4.5); Sodium 133 mmol/L (137-145)
[2021-06-16 08:00] VITALS: PULSE 98
[2021-06-16] MEDS: SPIRONOLACTONE 25 MG TABLET PO (08:04)
[2021-06-16] MEDS: hydrALAZINE HCL 25 MG TABLET PO ×2 (08:05→12:16)
[2021-06-16] MEDS: ISOSORBIDE MONONITRATE 30 MG TAB.ER.24H PO (08:05)
[2021-06-16] MEDS: FUROSEMIDE INJ 40 MG/4 ML VIAL IV PUSH (08:05)
[2021-06-16] MEDS: ENOXAPARIN 40 MG/0.4 ML SYRINGE SUB-Q (08:05)
[2021-06-16] MEDS: METOPROLOL TARTRATE 25 MG TABLET PO (08:05)
[2021-06-16] MEDS: lisinopriL 20 MG TABLET PO (08:07)
--- NOTE | 2021-06-16 10:55 | PM.PNNEP ---
Progress Note: A&P Additional Plan 1. The patient has anasarca. He has protein in the urine. His creatinine is elevated. Most likely due to nephrotic range proteinuria, sleep apnea, and pulmonary hypertension. He seems to be improving. continue diuretics. Changing from IV to p.o.. I agree with patient going home. 2. The patient has elevated creatinine. Renal ultrasound shows normal kidneys. Urine shows nephrotic range protein urinalysis shows blood and protein. He had a renal biopsy done yesterday. The results will be back on Friday. I told the patient that I would call him at home. He lives with his cousin who can translate. 3. The patient has a high hemoglobin. He will need sleep study as an outpatient. 4. The patient has hypertension. Blood pressure is under good control now. He is on hydralazine , lisinopril, and spironolactone. Subjective Date/time seen: 06/16/21 10:55 Interval history: [employer] system used for translation. this patient is Feeling okay. Swelling is better. The biopsy went well yesterday. Exam Narrative: WDWN in NAD skin no rash or subcu nodules head ncat lungs clear bilaterally cor reg no rub abd BS+ nontender and soft ext 1-2+ edema. Objective Data Vital Signs Vital Signs: Vital Signs - 24 hr 06/15/21 12:00 06/15/21 14:35 06/15/21 15:10 Temperature Pulse Rate 81 86 Respiratory Rate 30 H 28 H Blood Pressure 139/67 141/72 H Pulse Oximetry 100 98 06/15/21 16:00 06/15/21 20:00 06/15/21 21:30 Temperature 36.3 C L 36.5 C Pulse Rate 87 96 86 Respiratory Rate 17 25 H 22 H Blood Pressure 138/92 H 147/86 H 120/66 Pulse Oximetry 94 94 97 06/16/21 00:00 06/16/21 04:11 06/16/21 04:44 Temperature 36.8 C Pulse Rate 78 89 92 Respiratory Rate 18 Blood Pressure 148/88 H Pulse Oximetry 96 06/16/21 08:00 Temperature Pulse Rate 98 Respiratory Rate Blood Pressure Pulse Oximetry Intake/Output Intake/Output: Intake & Output 06/13/21 06/14/21 06/15/21 06/16/21 23:59 23:59 23:59 23:59 Intake Total 3147 631 2239 290 Output Total 2133 2294 6400 Balance -4653 -2196 -8565 290 Meds/Results Medications: Active Medications Generic Name Dose Route Start Last Admin Trade Name Freq PRN Reason Stop Dose Admin Enoxaparin Sodium 40 mg 06/12/21 12:25 06/16/21 08:05 Enoxaparin 40 Mg/0.4 Ml Syringe SUB-Q 40 mg DAILY MISTY Administration Furosemide 40 mg 06/13/21 09:00 06/16/21 08:05 Furosemide Inj 40 Mg/4 Ml Vial IV PUSH 40 mg BID MISTY Administration Hydralazine HCl 20 mg 06/12/21 11:49 Hydralazine Hcl 20 Mg/Ml Vial IV PUSH Q4H PRN SBP > 170 -2nd choice Hydralazine HCl 25 mg 06/12/21 17:00 06/16/21 08:05 Hydralazine Hcl 25 Mg Tablet PO 25 mg QID MISTY Administration Isosorbide Mononitrate 30 mg 06/14/21 09:00 06/16/21 08:05 Isosorbide Mononitrate 30 Mg Tab.Er.24h PO 30 mg QAM MISTY Administration Labetalol HCl 20 mg 06/12/21 11:49 06/14/21 06:38 Labetalol Hcl Inj 100 Mg/20 Ml Vial IV PUSH 20 mg Q4H PRN Administration SBP > 170 - 1st choice Lisinopril 20 mg 06/14/21 14:25 06/16/21 08:07 Lisinopril 20 Mg Tablet PO 20 mg QAM MISTY Administration Metoprolol Tartrate 25 mg 06/12/21 12:20 06/16/21 08:05 Metoprolol Tartrate 25 Mg Tablet PO 25 mg Q12HR MISTY Administration Perflutren Lipid Microsphere 0 ml 06/12/21 10:41 Perflutren Lipid Microspheres 1.5 Ml Vial Diluted To 10 Ml Total Volume IV PUSH ONCE PRN adequate visualization Protocol Spironolactone 25 mg 06/14/21 09:00 06/16/21 08:04 Spironolactone 25 Mg Tablet PO 25 mg QAM MISTY Administration Radiology Results: ITS Impressions Scrotum Ultrasound 06/12/21 07:42 IMPRESSION: 1. Bilateral varicoceles. 2. Extensive scrotal skin thickening. Abdomen/Pelvis CT 06/12/21 08:22 IMPRESSION: 1. Anasarca including moderate pulmonary edema, small
--- NOTE | 2021-06-16 11:25 | PM.DS ---
DS: Admitting Diagnosis Discharge Date 06/16/2021 Admitting Diagnosis swelling of legs DS: Discharge Diagnosis Discharge Diagnosis (1) Hypertensive emergency: Code(s): I16.1 - Hypertensive emergency Status: Acute Assessment and Plan: his initial blood pressure on arrival was 208/152. He was started on Nicardipine drip and was admitted to the ICU Cardiology consulted he was started on oral medication. He was also started on IV diuresis with furosemide IV b.i.d. Added on hydralazine, lisinopril, metoprolol, Imdur and spironolactone. He was also noted to have renal insufficiency with creatinine of 2. He had no prior renal panel done in the past. Nephrology was consulted. Evaluation noted to have nephrotic range proteinuria. Evaluation for this was ordered with ALEENA/Anca, hepatitis panel complement level myeloma workup. Renal ultrasound was negative for hydronephrosis Free kappa and lambda light chain were elevated with normal ratio. He underwent renal biopsy during the hospital stay on 06/15/2021. 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 His renal function was monitored throughout the hospital stay and remained stable. Blood pressure was control with combination of different medications. He was also evaluated for sleep apnea with apnea link was noted to have suspected sleep apnea which could be an underlying cause for his uncontrolled hypertension congestive heart failure. He still required oxygen at nighttime for his sleep apnea and is recommended for him to get a sleep test as an outpatient basis. (2) Acute kidney injury: Code(s): N17.9 - Acute kidney failure, unspecified Status: Acute Assessment and Plan: Probable related to hypertensive urgency and CHF exacerbation Concern for glomerular nephritis concern for nephrotic syndrome autoimmune workup pending Nephrology consulted IV Lasix Renal ultrasound with no hydronephrosis Creatinine admission2.0; stable creatinine Has nephrotic range proteinuria He is status post kidney biopsy done on 06/15/2021 (3) Anasarca: Code(s): R60.1 - Generalized edema Status: Acute Assessment and Plan: Reviewed CT scan shows anasarca pulmonary edema pleural effusion multifactorial most likely related to hypertensive urgency and acute renal failure cannot rule out nephrotic syndrome Continue IV diuresis Echo shows ejection fraction 35% His swelling improved significantly with IV diuresis. (4) Hypoxia: Code(s): R09.02 - Hypoxemia Status: Acute Assessment and Plan: Multifactorial secondary to pulmonary edema and obstructive sleep apnea pulmonology consulted sleep study as outpatient continue IV diuresis Pulmonary following Echo with tricuspid regurgitation and pulmonary hypertension consistent with sleep apnea needs outpatient workup with sleep study as an outpatient basis Overnight pulse ox nearing discharge done on room air showed significant hypoxemia. Will order oxygen at night 2 L continuous at the time of discharge and is recommended for him to follow-up with pulmonary to perform a sleep study as an outpatient basis. (5) Cardiomyopathy: Code(s): I42.9 - Cardiomyopathy, unspecified Status: Acute Assessment and Plan: Acute systolic CHF exacerbation cardiology consult Stress test negative 06/14/2021 On IV diuresis Improved swelling with diuresis On beta-ramon TAWNYA inhibitor spironolactone He will continue to follow-up with cardiology as an outpatient basis Possible underlying sleep apnea as an etiology for his cardiomyopathy (6) Abnormal urinalysis: Code(s): R82.90 - Unspecified abnormal findings in urine Status: Acute Assessment and Plan: however no symptoms, [id number] growth of Enterococcus likely contamination since asymptomatic will not treat with any antibiotics (7) Light chain disease: Code
[2021-06-16 12:00] VITALS: PULSE 85
--- NOTE | 2021-06-16 13:16 | PCRCNOTE ---
Patient requires 2 lpm NOC results of Apnea Link. [facility] [phone] to deliver oxygen to patients home. RN notified.
--- NOTE | 2021-06-16 14:20 | PC.NURSE ---
Patient discharge instructions went over at length with the use of the um nurse service. RN stressed importance of medication adherence, provider follow-up, and Oxygen use. Patient verbalized understanding and said that he would call doctor's offices Friday morning.
[2021-06-16 19:23] LABS: Hepatitis B Core Ab Total Nonreactive (Nonreactive)
[2021-06-17 12:12] LABS: ANCA Screen Negative (Negative)
--- NOTE | 2021-06-18 14:17 | PCRCNOTE ---
[facility] CALLED AND STATED THEY COULD NOT SET PT. UP WITH OXYGEN BECAUSE PT. DID NOT HAVE CREDIT CARD TO PLACE ON FILE. ONLY HAD [employer]. REACHED OUT TO [facility] AND PT. IS ABLE TO PURCHASE O2 TANKS THERE WITH [employer]. FAXED INFO TO [facility]. THEY WILL REACH OUT TO PT. FOR SETUP.
[2021-06-19 11:20] LABS: Metanephrine, Free 59 pg/mL (<=57); Normetanephrine, Free 105 pg/mL (<=148); Total, Free (MN + NMN) 164 pg/mL (<=205)
[2021-06-20 09:56] LABS: PRA 2.16 ng/mL/h (0.25-5.82)
[2021-06-21 13:30] LABS: Albumin 55 %; Creat 24 Hr 0.27 g/24 h (0.50-2.15); Measured Kappa Chains 1.83 mg/dL (<2.00); Measured Lambda Chains <1.00 mg/dL (<2.00); Pro/Creat Ratio 4106 mg/g creat (<=114); Total Kappa Chains 18.849 mg/24 h
[2021-06-22 14:06] LABS: Protein,total, 24 Hr Ur 1105 mg/24h
== END 2021-06-16 15:20 | disposition home or self-care (01) | DRG 950 ==
LOC: ANHED 08:47 → ANHICU 10:25 → ANH3MED 06-15 21:26
PROVIDERS: Internal Medicine; Internal Medicine Cardiovascular Disease; Internal Medicine Nephrology; Internal Medicine Pulmonary Disease; Admitting Provider Internal Medicine; Emergency Provider Emergency Medicine; Visit Provider Internal Medicine
DX: I16.1 Hypertensive emergency (principal); N17.9 Acute kidney failure, unspecified; N04.9 Nephrotic syndrome with unspecified morphologic changes; I50.41 Acute combined systolic (congestive) and diastolic (congestive) heart failure; I07.1 Rheumatic tricuspid insufficiency; I43 Cardiomyopathy in diseases classified elsewhere; I11.0 Hypertensive heart disease with heart failure; I27.20 Pulmonary hypertension, unspecified; D89.89 Other specified disorders involving the immune mechanism, not elsewhere classified; E66.9 Obesity, unspecified; G47.33 Obstructive sleep apnea (adult) (pediatric); R09.02 Hypoxemia; R82.90 Unspecified abnormal findings in urine; Z68.34 Body mass index [BMI] 34.0-34.9, adult
CPT/HCPCS: 36415; 36600; 50200; 71045; 74177; 76770; 76870; 76942; 78452; 80048; 80053; 81001; 82088; 82550; 82570; 82805; 83036; 83520; 83735; 83835; 83880; 83883; 83970; 84100; 84156; 84244; 84300; 84443; 85025; 85027; 85610; 85652; 86036; 86038; 86160; 86162; 86334; 86335; 86704; 86706; 86803; 87077; 87086; 87088; 87186; 87340; 88300; 88307; 88329; 93005; 93017; 93306; 93976; 94762; 96374; 99285; A9270; A9502; J1650; J1940; J2785; Q9967